=== PATIENT | female | born 1970 | race Caucasian/White ===

== ENCOUNTER 2021-09-16 16:30 | Inpatient (IN) | payer BC ==
[~2021-09-16] VITALS: Ht 157.5 cm; Wt 72.0 kg
[2021-09-16 16:00] VITALS: BP 139/84
--- NOTE | 2021-09-16 16:00 | NUR ---
admitted from [facility] er. chief complaint that started on Tuesday with abdominal pain, nausea and diarrhea. she was able to keep Pedialyte and Gatorade and broth down. pain became progressively worse and went to ER. medical history completed. ems transferred; she has a IV in left antecubital. requesting food.
[2021-09-16] MEDS ORDERED: IV NORMAL SALINE 1000ML BAG 1,000 ML IV ONE (16:45)
[2021-09-16] MEDS ORDERED: PIP/TAZO PER PHARMACY MC PRN (16:45)
--- NOTE | 2021-09-16 16:52 | PDOC1 ---
History and Physical Date of Admission Date of Admission DATE: 09/16/21 TIME: 16:47 Identification/Chief Complaint Chief Complaint abd pain Source Source: Chart review, Patient History of Present Illness History of Present Illness MS. Orellana, is a 51 year old female transfer from [facility], with acute abdominal pain, NVD for days. Her pain is central/periumbilical and radiates to the low abdomen, especially the right side. She denies exacerbating and remitting factors. She has not ambulated much at home secondary to her pain. poor po intake for days, has vomited, is nauseated, able to keep some clears down. low T , 100, has had watery stools CT abd showed perf appy, Zosyn given Past Medical History Past Medical History Diabetes, Hypertension Past Surgical History Past Surgical History Past Surgical History: Cholecystectomy, Other Additional Past Surgical Histo: bariatric sleeve Family History Family History Family History: Diabetes, Hypertension Social History Smoke: # pack years (social use, ) ALCOHOL: rare Drugs: None Current Medications Current Medications Current Medications Piperacillin Sod/ Tazobactam Sod (Zosyn Per Pharmacy) 1 each PRN DAILY PRN MC SEE COMMENTS; Start 09/16/21 at 16:45 Sodium Chloride 1,000 ml @ 1,000 mls/hr 1X ONCE IV ; Start 09/16/21 at 16:45; Stop 09/16/21 at 17:44; Status UNV Morphine Sulfate (Morphine Sulfate) 4 mg PRN Q2HR PRN IVP PAIN; Start 09/16/21 at 16:45; Status UNV Allergies Allergies: Coded Allergies: No Known Drug Allergies (Unverified , 09/16/21) ROS Review of System acute abd pain, distress General: YES: Chills Physical Exam General: Alert, moderate distress HEENT: Atraumatic, Mucous membr. moist/pink Heart: no murmurs Abdomen: Other (tender guard) Rectal Exam: not examined Extremities: No edema Skin: No rashes Neuro: Normal speech, Sensation intact VTE Prophylaxis Ordered VTE Prophylaxis Devices: No VTE Pharmacological Prophylaxi: Yes Assessment/Plan Assessment/Plan sepsis, zosyn acute abd pain acute perforated appendicitis Dm2 htn Justifications for Admission Other Justification ELENITA NAIR MD Sep 16, 2021 16:52
[2021-09-16] MEDS: INSULIN LISPRO 300 UNITS/3 ML VIAL. SQ SCH (17:00)
--- NOTE | 2021-09-16 17:30 | NUR ---
blood sugar 56. given a 1/2 amp dextrose. blood sugar went up to 110. she had no symptoms
[2021-09-16] MEDS: DEXTROSE 50% 25 GM / 50ML DISP.SYRIN. IV PRN (18:25)
[2021-09-16] MEDS: PIPERACILLIN/TAZOBACTAM 3.375 GM in IV NORMAL SALINE 50ML 50 ML IV SCH (18:27)
[2021-09-16] MEDS: MORPHINE SULFATE 2 MG/ML INJ. IVP PRN (18:28)
[2021-09-16 19:32] VITALS: BP 146/77
[2021-09-16] MEDS ORDERED: CALC250T PO (20:12)
[2021-09-16] MEDS ORDERED: LISI10TA16 PO (20:12)
[2021-09-16] MEDS ORDERED: LACT1CAP37 PO (20:12)
[2021-09-16] MEDS ORDERED: ALPR0.25 PO (20:12)
[2021-09-16] MEDS ORDERED: MULT-121 PO (20:12)
[2021-09-16] MEDS ORDERED: TRAM50TA PO (20:12)
[2021-09-16] MEDS ORDERED: CHOL5000 PO (20:12)
--- NOTE | 2021-09-16 20:47 | NUR ---
Patient agitated and restless. "I don't know why I'm even here, the surgeon hasn't even seen me." C/o that Morphine makes her stomach burn and doesn't help w/ the pain. Paged Dr. Panda for these meds per pt request- Toradol, Benadryl and Xanax.
[2021-09-16] MEDS: diphenhydrAMINE 50 MG/ML VIAL IVP PRN (21:52)
[2021-09-16] MEDS: ALPRAZolam 0.25 MG TABLET PO PRN (21:53)
[2021-09-16] MEDS: KETOROLAC 30 MG/ML VIAL. IV PRN (21:53)
[2021-09-16 22:33] VITALS: BP 133/77
[2021-09-17] MEDS: PIPERACILLIN/TAZOBACTAM 3.375 GM in IV NORMAL SALINE 50ML 50 ML IV SCH ×5 (06:00→23:55)
[2021-09-17 07:15] VITALS: BP 134/70
[2021-09-17] MEDS: INSULIN LISPRO 300 UNITS/3 ML VIAL. SQ SCH ×3 (07:37→17:00)
--- NOTE | 2021-09-17 07:47 | NUR ---
[employer] system down since 99, paper charting in chart.
[2021-09-17] MEDS: DEXTROSE 50% 25 GM / 50ML DISP.SYRIN. IV PRN (07:56)
--- NOTE | 2021-09-17 10:06 | NUR ---
Patient is very agitated at this time and is yelling/crying/cussing in her room. She states she does not know why she is not in surgery right now and is puzzled on why the surgeon has not been in to see her. This nurse tried calming the patient down but she is threatening to leave AMA since the surgeon has not seen her. Called and spoke to the office who stated the consult went to Dr Laura yesterday. He is in surgery right now at [facility] till at least noon per their trade union secretary and will come see the patient later today. Patient was notified and is still not happy with the fact the surgeon has not seen her yesterday or today. Dr Hammond is on the floor and notified of patients behaviors. Will also try calling Dr Cagle office around noon to page him so I can speak with him over the phone. Will continue to monitor. Dr Hammond notified of patients low blood sugar this morning as well. New order for D5 1/2 NS at 100ml since patient is NPO at this time to help stabilize her blood sugars. Will monitor.
--- NOTE | 2021-09-17 10:12 | PDOC ---
[employer] PROGRESS NOTE Date of Service DOS: DATE: 09/17/21 TIME: 10:10 Chief Complaint Chief Complaint sepsis, zosyn acute abd pain acute perforated appendicitis Dm2 htn History of Present Illness History of Present Illness tearful and agitated today, upset with waiting and that we should know what she has been through this week. Is loud with me in her complaints, but does not stop texting as I tried to trouble shoot or offer things to help,. Blood sugar 70 this AM, will start D5 half, I offered meds to help calm her and she did not respond Vitals/I&O Vitals/I&O: Vital Signs Date Time Temp Pulse Resp B/P (MAP) Pulse Ox O2 Delivery O2 Flow Rate FiO2 09/17/21 07:50 Room Air 09/17/21 07:15 97.8 71 20 134/70 (91) 96 97.8 I & O 09/16/21 09/16/21 09/17/21 15:00 23:00 07:00 Intake Total 0 ml 0 ml Balance 0 ml 0 ml Physical Exam General: Alert, moderate distress, Other (agiated, ) Abdomen: Other (tender guard) Extremities: No edema Skin: No rashes Labs Labs: Laboratory Tests Test 09/16/21 18:17 09/16/21 18:36 09/16/21 20:17 09/17/21 07:12 Glucose (Fingerstick) 56 mg/dL (70-99) 110 mg/dL (70-99) 76 mg/dL (70-99) 70 mg/dL (70-99) Test 09/17/21 08:10 Glucose (Fingerstick) 142 mg/dL (70-99) Comment Review of Relevant I have reviewed the following items dorian (where applicable) has been applied. Medications: Current Medications Medications (Trade) Dose Ordered Sig/Chris Route PRN Reason Start Time Stop Time Status Last Admin Dose Admin Sodium Chloride 1,000 ml @ 1,000 mls/hr 1X ONCE IV 09/16/21 16:45 09/16/21 17:44 DC 09/16/21 18:22 Morphine Sulfate (Morphine Sulfate) 4 mg PRN Q2HR PRN IVP PAIN 09/16/21 16:45 09/16/21 18:28 Piperacillin Sod/ Tazobactam Sod 3.375 gm/Sodium Chloride 50 ml @ 100 mls/hr Q6HRS IV 09/16/21 18:00 09/17/21 06:00 Dextrose (Dextrose 50%-Water Syringe) 12.5 gm PRN Q15MIN PRN IV SEE COMMENTS 09/16/21 17:00 09/17/21 07:56 Ketorolac Tromethamine (Toradol 30mg Vial) 30 mg PRN Q6HRS PRN IV MODERATE PAIN 4-6 09/16/21 21:45 09/21/21 21:44 09/16/21 21:53 Diphenhydramine HCl (Benadryl) 50 mg PRN Q6HRS PRN IVP MILD PAIN 1-3 09/16/21 21:45 09/16/21 21:52 Alprazolam (Xanax) 0.25 mg PRN QHS PRN PO ANXIETY 09/16/21 21:45 09/16/21 21:53 Justifications for Admission Other Justification ELENITA NAIR MD Sep 17, 2021 10:12
--- NOTE | 2021-09-17 10:23 | NUR ---
SW following. Discussed with RN, pt from home, room air, NPO. Surgery consulted. Pt very unhappy that surgeon has not been by to see her and that he is in surgery at [facility] until noon today. Pt threatening to leave AMA. RN advised no SW needs at this time. SW will continue to follow.
[2021-09-17 10:59] VITALS: BP 185/84
[2021-09-17] MEDS: IV DEXTROSE 5 %-0.45 % NACL 1,000 ML IV SCH ×2 (11:13→20:41)
[2021-09-17] MEDS: KETOROLAC 30 MG/ML VIAL. IV PRN ×3 (11:16→23:16)
[2021-09-17] MEDS: diphenhydrAMINE 50 MG/ML VIAL IVP PRN ×3 (11:20→23:15)
[2021-09-17 14:43] VITALS: BP 149/86
[2021-09-17] MEDS: MORPHINE SULFATE 2 MG/ML INJ. IVP PRN ×2 (16:07→22:29)
[2021-09-17 19:00] VITALS: BP 120/71
--- NOTE | 2021-09-17 20:06 | PDOC2 ---
CONSULT Date of Consult Date of Consult DATE: 09/17/21 TIME: 19:57 Reason for Consult Reason for Consult: perforated appendicitis Referring Physician Referring Physician: Dr. Hammond Identification/Chief Complaint Chief Complaint RLQ abd pain, nausea Source Source: Chart review, Patient History of Present Illness Reason for Visit: 51 yo F with c/o abd pain beginning on 09/12. Developed increasing abd pain and nausea and prompting visit to ER at [facility] last night. Does seem to have some reduction in nausea and pain. History of gastric sleeve 2019 with 60 lbs weight loss. Past Medical History Cardiovascular: HTN Endocrine: Diabetes Past Surgical History Past Surgical History: Cholecystectomy, Other (gastric sleeve) Family History Family History: Diabetes, Hypertension Social History # pack years (social use, ) ALCOHOL: social (does reports 6-12 units of Etoh on weekends. Smoke with drinking) Drugs: None Current Medications Current Medications Current Medications Piperacillin Sod/ Tazobactam Sod (Zosyn Per Pharmacy) 1 each PRN DAILY PRN MC SEE COMMENTS; Start 09/16/21 at 16:45 Sodium Chloride 1,000 ml @ 1,000 mls/hr 1X ONCE IV Last administered on 09/16/21at 18:22; Start 09/16/21 at 16:45; Stop 09/16/21 at 17:44; Status DC Morphine Sulfate (Morphine Sulfate) 4 mg PRN Q2HR PRN IVP SEVERE PAIN Last a dministered on 09/17/21at 16:07; Start 09/16/21 at 16:45 Piperacillin Sod/ Tazobactam Sod 3.375 gm/Sodium Chloride 50 ml @ 100 mls/hr Q6HRS IV Last administered on 09/17/21at 17:03; Start 09/16/21 at 18:00 Insulin Human Lispro (HumaLOG) 0-7 UNITS TIDWMEALS SQ ; Start 09/16/21 at 17:00 Dextrose (Dextrose 50%-Water Syringe) 12.5 gm PRN Q15MIN PRN IV SEE COMMENTS Last administered on 09/17/21at 07:56; Start 09/16/21 at 17:00 Ketorolac Tromethamine (Toradol 30mg Vial) 30 mg PRN Q6HRS PRN IV MODERATE PAIN 4-6 Last administered on 09/17/21at 17:00; Start 09/16/21 at 21:45; Stop 09/21/21 at 21:44 Diphenhydramine HCl (Benadryl) 50 mg PRN Q6HRS PRN IVP MILD PAIN 1-3 Last administered on 09/17/21at 17:00; Start 09/16/21 at 21:45 Alprazolam (Xanax) 0.25 mg PRN QHS PRN PO ANXIETY Last administered on 09/16/21at 21:53; Start 09/16/21 at 21:45 Dextrose/Sodium Chloride 1,000 ml @ 100 mls/hr Q10H IV Last administered on 09/17/21at 11:13; Start 09/17/21 at 10:15 Active Scripts Active Reported Tramadol Hcl 50 Mg Tablet 50 Mg PO Q4HRS PRN Xanax (Alprazolam) 0.25 Mg Tablet 1 Tab PO HS PRN Vitamin D3 (Vitamin D) 125 Mcg Capsule 125 Mcg PO DAILY 5,000 UNITS = 125 MCG Probiotic (Lactobacillus Combo No.10) 1 Each Capsule 1 Tab PO DAILY 30 Days Calcium Citrate 250 Mg Tablet 1 Tab PO DAILY 30 Days Multiple Vitamins (Multivitamin) 1 Each Tablet 1 Tab PO DAILY 30 Days Lisinopril 10 Mg Tablet 1 Tab PO DAILY Allergies Allergies: Coded Allergies: No Known Drug Allergies (Unverified , 09/16/21) ROS Gastrointestinal: Yes Nausea, Yes Abdominal Pain Physical Exam General: Alert, Oriented X3, Cooperative, No acute distress HEENT: Atraumatic Abdomen: Soft, Other (TTP RLQ, no peritoneal signs) Extremities: No clubbing, No cyanosis Skin: No rashes, No breakdown Neuro: Normal speech, Sensation intact Psych/Mental Status: Mental status NL, Mood NL Vitals VITALS Vital Signs Date Time Temp Pulse Resp B/P (MAP) Pulse Ox O2 Delivery O2 Flow Rate FiO2 09/17/21 16:30 96 Room Air 09/17/21 14:43 98.4 76 20 149/86 (107) 98.4 Labs Labs Laboratory Tests Test 09/16/21 18:17 09/16/21 18:36 09/16/21 20:17 09/17/21 07:12 Glucose (Fingerstick) 56 mg/dL (70-99) 110 mg/dL (70-99) 76 mg/dL (70-99) 70 mg/dL (70-99) Test 09/17/21 08:10 09/17/21 11:21 09/17/21 16:45 Glucose (Fingerstick) 142 mg/dL (70-99) 70 mg/dL (70-99) 193 mg/dL (70-99) Laboratory Tests Test 09/16/21 20:17 09/17/21 07:12 09/17/21 08:10 09/17/21 11:21 Glucose (Fingerstick) 76 mg/dL (70-99) 70 mg/dL (70-99) 142 mg/dL (70-99) 70 mg/dL (70-99) Test 09/17/21 16:45 Glucose (Fingerstick) 193 mg/dL (70-99) Images Images Appendicitis with associated small amount of free air and fluid c/w perforation Assessment/Plan Assessment/Plan Perforated appendicitis pt appears reasonably stable to improved on abx and pain meds. Will strart clears. If able to ADAT to regular diet will work towards d/c home on PO abx. Will plan elective appendectomy in 6 weeks. Thanks for consult! XAVIER HANNON MD Sep 17, 2021 20:06
[2021-09-17 23:00] VITALS: BP 162/92
[2021-09-17] MEDS: ALPRAZolam 0.25 MG TABLET PO PRN (23:16)
[2021-09-18 03:00] VITALS: BP 123/63
[2021-09-18] MEDS: KETOROLAC 30 MG/ML VIAL. IV PRN ×2 (05:21→11:21)
[2021-09-18] MEDS: diphenhydrAMINE 50 MG/ML VIAL IVP PRN ×2 (05:21→11:20)
[2021-09-18] MEDS: IV DEXTROSE 5 %-0.45 % NACL 1,000 ML IV SCH (05:27)
[2021-09-18] MEDS: PIPERACILLIN/TAZOBACTAM 3.375 GM in IV NORMAL SALINE 50ML 50 ML IV SCH ×2 (05:27→11:20)
[2021-09-18 06:31] LABS: BASO % 0 % (0-3); EOS # 0.1 x10^3/uL (0.0-0.7); EOS % 1 % (0-3); HEMOGLOBIN 10.4 g/dL (12.0-15.5); LYMPH # 1.2 x10^3/uL (1.0-4.8); LYMPH % 19 % (24-48); MEAN CORPUSCULAR HEMOGLOBIN 30 pg (25-35); MEAN CORPUSCULAR HGB CONC 34 g/dL (31-37); MEAN CORPUSCULAR VOLUME 88 fL (79-100); MONO # 1.1 x10^3/uL (0.0-1.1); MONO % 18 % (0-9); NEUT % 62 % (31-73); PLATELET COUNT 240 x10^3/uL (140-400); RED BLOOD COUNT 3.52 x10^6/uL (3.50-5.40); WHITE BLOOD COUNT 6.5 x10^3/uL (4.0-11.0)
[2021-09-18 06:45] LABS: ALBUMIN 2.1 g/dL (3.4-5.0); ALBUMIN/GLOBULIN RATIO 0.6 (1.0-1.7); CALCIUM 8.2 mg/dL (8.5-10.1); CREATININE 0.8 mg/dL (0.6-1.0); POTASSIUM 3.2 mmol/L (3.5-5.1); TOTAL BILIRUBIN 0.4 mg/dL (0.2-1.0); TOTAL PROTEIN 5.6 g/dL (6.4-8.2)
[2021-09-18 07:00] VITALS: BP 122/69
[2021-09-18] MEDS: INSULIN LISPRO 300 UNITS/3 ML VIAL. SQ SCH ×2 (08:00→12:00)
[2021-09-18] MEDS ORDERED: TRAM50TA PO (08:56)
[2021-09-18] MEDS ORDERED: AMOX1TAB61 PO (08:56)
[2021-09-18] MEDS ORDERED: POLYETHYLENE GLYCOL 3350 17 GM PACKET. PO ONE (09:45)
[2021-09-18] MEDS ORDERED: DOCUSATE SODIUM 100 MG CAPSULE. PO SCH (09:45)
--- NOTE | 2021-09-18 09:48 | PDOC3 ---
Discharge Summary Visit Information Date of Admission: Sep 16, 2021 Date of Discharge: Sep 18, 2021 Final Diagnosis sepsis, acute abd pain acute perforated appendicitis Dm2 htn prior gastric bypass surg Brief Hospital Course Allergies Allergies Coded Allergies Type Severity Reaction Last Updated Verified No Known Drug Allergies 09/16/21 No Vital Signs Vital Signs Date Time Temp Pulse Resp B/P (MAP) Pulse Ox O2 Delivery O2 Flow Rate FiO2 09/18/21 08:15 Room Air 09/18/21 07:00 97.9 65 20 122/69 (86) 94 97.9 Lab Results Laboratory Tests Test 09/16/21 18:17 09/16/21 18:36 09/16/21 20:17 09/17/21 07:12 Glucose (Fingerstick) 56 mg/dL (70-99) 110 mg/dL (70-99) 76 mg/dL (70-99) 70 mg/dL (70-99) Test 09/17/21 08:10 09/17/21 11:21 09/17/21 16:45 09/17/21 20:52 Glucose (Fingerstick) 142 mg/dL (70-99) 70 mg/dL (70-99) 193 mg/dL (70-99) 164 mg/dL (70-99) Test 09/18/21 06:20 09/18/21 07:56 White Blood Count 6.5 x10^3/uL (4.0-11.0) Red Blood Count 3.52 x10^6/uL (3.50-5.40) Hemoglobin 10.4 g/dL (12.0-15.5) Hematocrit 31.0 % (36.0-47.0) Mean Corpuscular Volume 88 fL (79-100) Mean Corpuscular Hemoglobin 30 pg (25-35) Mean Corpuscular Hemoglobin Concent 34 g/dL (31-37) Red Cell Distribution Width 17.0 % (11.5-14.5) Platelet Count 240 x10^3/uL (140-400) Neutrophils (%) (Auto) 62 % (31-73) Lymphocytes (%) (Auto) 19 % (24-48) Monocytes (%) (Auto) 18 % (0-9) Eosinophils (%) (Auto) 1 % (0-3) Basophils (%) (Auto) 0 % (0-3) Neutrophils # (Auto) 4.0 x10^3/uL (1.8-7.7) Lymphocytes # (Auto) 1.2 x10^3/uL (1.0-4.8) Monocytes # (Auto) 1.1 x10^3/uL (0.0-1.1) Eosinophils # (Auto) 0.1 x10^3/uL (0.0-0.7) Basophils # (Auto) 0.0 x10^3/uL (0.0-0.2) Sodium Level 137 mmol/L (136-145) Potassium Level 3.2 mmol/L (3.5-5.1) Chloride Level 101 mmol/L (98-107) Carbon Dioxide Level 30 mmol/L (21-32) Anion Gap 6 (6-14) Blood Urea Nitrogen 6 mg/dL (7-20) Creatinine 0.8 mg/dL (0.6-1.0) Estimated GFR (Cockcroft-Gault) 75.0 BUN/Creatinine Ratio 8 (6-20) Glucose Level 134 mg/dL (70-99) Calcium Level 8.2 mg/dL (8.5-10.1) Total Bilirubin 0.4 mg/dL (0.2-1.0) Aspartate Amino Transf (AST/SGOT) 20 U/L (15-37) Alanine Aminotransferase (ALT/SGPT) 36 U/L (14-59) Alkaline Phosphatase 213 U/L (46-116) Total Protein 5.6 g/dL (6.4-8.2) Albumin 2.1 g/dL (3.4-5.0) Albumin/Globulin Ratio 0.6 (1.0-1.7) Glucose (Fingerstick) 155 mg/dL (70-99) Laboratory Tests Test 09/17/21 11:21 09/17/21 16:45 09/17/21 20:52 09/18/21 06:20 Glucose (Fingerstick) 70 mg/dL (70-99) 193 mg/dL (70-99) 164 mg/dL (70-99) White Blood Count 6.5 x10^3/uL (4.0-11.0) Red Blood Count 3.52 x10^6/uL (3.50-5.40) Hemoglobin 10.4 g/dL (12.0-15.5) Hematocrit 31.0 % (36.0-47.0) Mean Corpuscular Volume 88 fL (79-100) Mean Corpuscular Hemoglobin 30 pg (25-35) Mean Corpuscular Hemoglobin Concent 34 g/dL (31-37) Red Cell Distribution Width 17.0 % (11.5-14.5) Platelet Count 240 x10^3/uL (140-400) Neutrophils (%) (Auto) 62 % (31-73) Lymphocytes (%) (Auto) 19 % (24-48) Monocytes (%) (Auto) 18 % (0-9) Eosinophils (%) (Auto) 1 % (0-3) Basophils (%) (Auto) 0 % (0-3) Neutrophils # (Auto) 4.0 x10^3/uL (1.8-7.7) Lymphocytes # (Auto) 1.2 x10^3/uL (1.0-4.8) Monocytes # (Auto) 1.1 x10^3/uL (0.0-1.1) Eosinophils # (Auto) 0.1 x10^3/uL (0.0-0.7) Basophils # (Auto) 0.0 x10^3/uL (0.0-0.2) Sodium Level 137 mmol/L (136-145) Potassium Level 3.2 mmol/L (3.5-5.1) Chloride Level 101 mmol/L (98-107) Carbon Dioxide Level 30 mmol/L (21-32) Anion Gap 6 (6-14) Blood Urea Nitrogen 6 mg/dL (7-20) Creatinine 0.8 mg/dL (0.6-1.0) Estimated GFR (Cockcroft-Gault) 75.0 BUN/Creatinine Ratio 8 (6-20) Glucose Level 134 mg/dL (70-99) Calcium Level 8.2 mg/dL (8.5-10.1) Total Bilirubin 0.4 mg/dL (0.2-1.0) Aspartate Amino Transf (AST/SGOT) 20 U/L (15-37) Alanine Aminotransferase (ALT/SGPT) 36 U/L (14-59) Alkaline Phosphatase 213 U/L (46-116) Total Protein 5.6 g/dL (6.4-8.2) Albumin 2.1 g/dL (3.4-5.0) Albumin/Globulin Ratio 0.6 (1.0-1.7) Test 09/18/21 07:56 Glucose (Fingerstick) 155 mg/dL (70-99) Brief Hospital Course Ms. Orellana is a 51 old c/o abd pain beginning on 09/12. Developed increasing abd pain and nausea and prompting visit to ER at [facility] last night, transfer here when CT showed Perf. after IV abx and pain meds, much better nausea and pain. History of gastric sleeve 2019 with 60 lbs weight loss. > 48 hours IV zosyn, better, able to cruz PO, will do 10 days augmentin Discharge Information Condition at Discharge: Improved Follow Up: Weeks Disposition/Orders: D/C to Home Scheduled Calcium Citrate (Calcium Citrate) 250 Mg Tablet, 1 TAB PO DAILY for supplement for 30 Days, #30 Ref 0 (Reported) Entered as Reported by: CHANEL BECKER on 09/16/212011 Last Taken: Unknown Dose on 09/16/21 Last Action: New Order on 09/16/212011 by CHANEL BECKER Cholecalciferol (Vitamin D3) (Vitamin D3 ) 125 Mcg Capsule, 125 MCG PO DAILY for supplement, (Reported) 5,000 UNITS = 125 MCG Entered as Reported by: CHANEL BECKER on 09/16/212011 Last Taken: Unknown Dose on 09/16/21 Last Action: New Order on 09/16/212011 by CHANEL BECKER Lactobacillus Combo No.10 (Probiotic) 1 Each Capsule, 1 TAB PO DAILY for supplement for 30 Days, #30 Ref 0 (Reported) Entered as Reported by: CHANEL BECKER on 09/16/212011 Last Taken: Unknown Dose on 09/16/21 Last Action: New Order on 09/16/212011 by CHANEL BECKER Lisinopril (Lisinopril) 10 Mg Tablet, 1 TAB PO DAILY for htn, #30 Ref 5 (Reported) Entered as Reported by: CHANEL BECKER on 09/16/212011 Last Taken: Unknown Dose on 09/16/21 Last Action: New Order on 09/16/212011 by CHANEL BECKER Multivitamin (Multiple Vitamins) 1 Each Tablet, 1 TAB PO DAILY for supplement for 30 Days, #30 Ref 0 (Reported) Entered as Reported by: CHANEL BECKER on 09/16/212011 Last Taken: Unknown Dose on 09/16/21 Last Action: New Order on 09/16/212011 by CHANEL BECKER Scheduled PRN Alprazolam (Xanax) 0.25 Mg Tablet, 1 TAB PO HS PRN for ANXIETY, #30 (Reported) Entered as Reported by: CHANEL BECKER on 09/16/212011 Last Action: Continued on 09/16/212144 by MARYJO TAVERA Tramadol Hcl (Tramadol Hcl) 50 Mg Tablet, 50 MG PO Q4HRS PRN for PAIN, #25 Prescribed by: ELENITA NAIR on 09/18/21 0857 Patient Instructions Patient Instructions f/u Dr. Nguyen in 6 weeks for surg primary care next week face to face today > 34 minutes Justicifation of Admission Dx: Justifications for Admission: Justification of Admission Dx: Yes (sepssi) ELENITA NAIR MD Sep 18, 2021 09:48
--- NOTE | 2021-09-18 09:50 | NUR ---
SW following. Discussed with RN, discharge order for home with self care. RN advised no SW needs at this time.
--- NOTE | 2021-09-18 09:55 | PDOC ---
SURGICAL PROGRESS NOTE DATE: 09/18/21 TIME: 09:54 Subjective Pt feels better, mild burning RLQ, cruz clears, nausea improved Vital Signs Vital Signs Date Time Temp Pulse Resp B/P (MAP) Pulse Ox O2 Delivery O2 Flow Rate FiO2 09/18/21 08:15 Room Air 09/18/21 07:00 97.9 65 20 122/69 (86) 94 97.9 General: Alert, Oriented X3, Cooperative, No acute distress Abdomen: Soft, Other (mild TTP RLQ) Labs Laboratory Tests Test 09/16/21 18:17 09/16/21 18:36 09/16/21 20:17 09/17/21 07:12 Glucose (Fingerstick) 56 mg/dL (70-99) 110 mg/dL (70-99) 76 mg/dL (70-99) 70 mg/dL (70-99) Test 09/17/21 08:10 09/17/21 11:21 09/17/21 16:45 09/17/21 20:52 Glucose (Fingerstick) 142 mg/dL (70-99) 70 mg/dL (70-99) 193 mg/dL (70-99) 164 mg/dL (70-99) Test 09/18/21 06:20 09/18/21 07:56 White Blood Count 6.5 x10^3/uL (4.0-11.0) Red Blood Count 3.52 x10^6/uL (3.50-5.40) Hemoglobin 10.4 g/dL (12.0-15.5) Hematocrit 31.0 % (36.0-47.0) Mean Corpuscular Volume 88 fL (79-100) Mean Corpuscular Hemoglobin 30 pg (25-35) Mean Corpuscular Hemoglobin Concent 34 g/dL (31-37) Red Cell Distribution Width 17.0 % (11.5-14.5) Platelet Count 240 x10^3/uL (140-400) Neutrophils (%) (Auto) 62 % (31-73) Lymphocytes (%) (Auto) 19 % (24-48) Monocytes (%) (Auto) 18 % (0-9) Eosinophils (%) (Auto) 1 % (0-3) Basophils (%) (Auto) 0 % (0-3) Neutrophils # (Auto) 4.0 x10^3/uL (1.8-7.7) Lymphocytes # (Auto) 1.2 x10^3/uL (1.0-4.8) Monocytes # (Auto) 1.1 x10^3/uL (0.0-1.1) Eosinophils # (Auto) 0.1 x10^3/uL (0.0-0.7) Basophils # (Auto) 0.0 x10^3/uL (0.0-0.2) Sodium Level 137 mmol/L (136-145) Potassium Level 3.2 mmol/L (3.5-5.1) Chloride Level 101 mmol/L (98-107) Carbon Dioxide Level 30 mmol/L (21-32) Anion Gap 6 (6-14) Blood Urea Nitrogen 6 mg/dL (7-20) Creatinine 0.8 mg/dL (0.6-1.0) Estimated GFR (Cockcroft-Gault) 75.0 BUN/Creatinine Ratio 8 (6-20) Glucose Level 134 mg/dL (70-99) Calcium Level 8.2 mg/dL (8.5-10.1) Total Bilirubin 0.4 mg/dL (0.2-1.0) Aspartate Amino Transf (AST/SGOT) 20 U/L (15-37) Alanine Aminotransferase (ALT/SGPT) 36 U/L (14-59) Alkaline Phosphatase 213 U/L (46-116) Total Protein 5.6 g/dL (6.4-8.2) Albumin 2.1 g/dL (3.4-5.0) Albumin/Globulin Ratio 0.6 (1.0-1.7) Glucose (Fingerstick) 155 mg/dL (70-99) Laboratory Tests Test 09/17/21 11:21 09/17/21 16:45 09/17/21 20:52 09/18/21 06:20 Glucose (Fingerstick) 70 mg/dL (70-99) 193 mg/dL (70-99) 164 mg/dL (70-99) White Blood Count 6.5 x10^3/uL (4.0-11.0) Red Blood Count 3.52 x10^6/uL (3.50-5.40) Hemoglobin 10.4 g/dL (12.0-15.5) Hematocrit 31.0 % (36.0-47.0) Mean Corpuscular Volume 88 fL (79-100) Mean Corpuscular Hemoglobin 30 pg (25-35) Mean Corpuscular Hemoglobin Concent 34 g/dL (31-37) Red Cell Distribution Width 17.0 % (11.5-14.5) Platelet Count 240 x10^3/uL (140-400) Neutrophils (%) (Auto) 62 % (31-73) Lymphocytes (%) (Auto) 19 % (24-48) Monocytes (%) (Auto) 18 % (0-9) Eosinophils (%) (Auto) 1 % (0-3) Basophils (%) (Auto) 0 % (0-3) Neutrophils # (Auto) 4.0 x10^3/uL (1.8-7.7) Lymphocytes # (Auto) 1.2 x10^3/uL (1.0-4.8) Monocytes # (Auto) 1.1 x10^3/uL (0.0-1.1) Eosinophils # (Auto) 0.1 x10^3/uL (0.0-0.7) Basophils # (Auto) 0.0 x10^3/uL (0.0-0.2) Sodium Level 137 mmol/L (136-145) Potassium Level 3.2 mmol/L (3.5-5.1) Chloride Level 101 mmol/L (98-107) Carbon Dioxide Level 30 mmol/L (21-32) Anion Gap 6 (6-14) Blood Urea Nitrogen 6 mg/dL (7-20) Creatinine 0.8 mg/dL (0.6-1.0) Estimated GFR (Cockcroft-Gault) 75.0 BUN/Creatinine Ratio 8 (6-20) Glucose Level 134 mg/dL (70-99) Calcium Level 8.2 mg/dL (8.5-10.1) Total Bilirubin 0.4 mg/dL (0.2-1.0) Aspartate Amino Transf (AST/SGOT) 20 U/L (15-37) Alanine Aminotransferase (ALT/SGPT) 36 U/L (14-59) Alkaline Phosphatase 213 U/L (46-116) Total Protein 5.6 g/dL (6.4-8.2) Albumin 2.1 g/dL (3.4-5.0) Albumin/Globulin Ratio 0.6 (1.0-1.7) Test 09/18/21 07:56 Glucose (Fingerstick) 155 mg/dL (70-99) Assessment/Plan perforated appendicitis will try soft diet and work towards d/c home on PO abx. will f/u in office in two weeks with plans for elective appendectomy in 6 weeks. Justicifation of Admission Dx: Justifications for Admission: Justification of Admission Dx: Yes (sepssi) XAVIER HANNON MD Sep 18, 2021 09:55
[2021-09-18 11:00] VITALS: BP 156/77
--- NOTE | 2021-09-18 13:32 | NUR ---
Patient left with family around 1330. IV discontinued without complications. Patient refused for this nurse to make her a follow up appointment with Dr Nguyen but she does know she needs to make one in two weeks for possible surgery in 6 weeks. She also states "I plan to get another opinion on Tuesday anyways". Discharge orders completed by Dr Hammond and douglas were sent to the patients pharmacy. No concerns noted at discharge.
== END 2021-09-18 13:37 | disposition home or self-care (01) | DRG 871 ==
LOC: 4 NORTH 16:30
PROVIDERS: ADMIT Internal Medicine; ATTEND Internal Medicine
DX: A41.9 Sepsis, unspecified organism (principal); K35.32 Acute appendicitis with perforation, localized peritonitis, and gangrene, without abscess; E11.9 Type 2 diabetes mellitus without complications; I10 Essential (primary) hypertension; Z82.49 Family history of ischemic heart disease and other diseases of the circulatory system; Z83.3 Family history of diabetes mellitus; Z98.84 Bariatric surgery status
CPT/HCPCS: 36415; 80053; 82962; 85025; J1200; J1815; J1885; J2270; J2543; J7030; J7042; G0378

== ENCOUNTER → 2021-09-25 | Outpatient (CLI) | payer BC ==
[2021-09-18 11:00] VITALS: BP 156/77
[~2021-09-25] MED LIST: ALPR0.25 PO; AMOX1TAB61 PO; CALC250T PO; CHOL5000 PO; LACT1CAP37 PO; LISI10TA16 PO; MULT-121 PO; OMEP20TA63 PO; OXYC1TAB15 PO; TRAM50TA PO
[2021-09-28 14:40] LABS: ALBUMIN 2.7 g/dL (3.4-5.0); ALBUMIN/GLOBULIN RATIO 0.5 (1.0-1.7); CALCIUM 9.3 mg/dL (8.5-10.1); CREATININE 0.7 mg/dL (0.6-1.0); GFR 87.5; TOTAL PROTEIN 7.7 g/dL (6.4-8.2)
[2021-09-28 14:41] LABS: POTASSIUM 4.1 mmol/L (3.5-5.1); TOTAL BILIRUBIN 0.3 mg/dL (0.2-1.0)
[2021-09-28 16:00] LABS: WHITE BLOOD COUNT 14.8 x10^3/uL (4.0-11.0)
[2021-09-28 16:06] LABS: HEMATOCRIT 36.1 % (36.0-47.0); HEMOGLOBIN 11.7 g/dL (12.0-15.5); MEAN CORPUSCULAR HEMOGLOBIN 29 pg (25-35); MEAN CORPUSCULAR HGB CONC 32 g/dL (31-37); MEAN CORPUSCULAR VOLUME 89 fL (79-100); PLATELET COUNT 732 x10^3/uL (140-400); RED BLOOD COUNT 4.08 x10^6/uL (3.50-5.40); RED CELL DISTRIBUTION WIDTH 17.1 % (11.5-14.5)
[2021-09-28 16:07] LABS: BASO # 0.1 x10^3/uL (0.0-0.2); BASO % 0 % (0-3); EOS # 0.1 x10^3/uL (0.0-0.7); EOS % 1 % (0-3); LYMPH % 14 % (24-48); MONO # 1.2 x10^3/uL (0.0-1.1); MONO % 8 % (0-9); NEUT # 11.5 x10^3/uL (1.8-7.7); NEUT % 77 % (31-73)
== END ==
LOC: LAB 13:24
PROVIDERS: ATTEND Surgery
DX: K35.32 Acute appendicitis with perforation, localized peritonitis, and gangrene, without abscess (principal)
CPT/HCPCS: 36415; 80053; 85025

== ENCOUNTER 2021-09-28 07:14 | Inpatient (IN) | payer BC ==
[~2021-09-28] VITALS: Ht 157.5 cm; Wt 80.3 kg
[~2021-09-28 07:14] MED LIST changes: +IV RINGERS,LACTATED 1000ML 1,000 ML IV SCH; +PROCHLORPERAZINE 10 MG/2 ML VIAL. IVP PRN; +cefOXitin SODIUM IV Push 2 GM VIAL. IVP ONE; +fentaNYL PF VIAL 100 MCG/2 ML VIAL IVP PRN
[2021-09-28] MEDS ORDERED: BUPIVACAINE-EPI 0.5% 30 ML VIAL KIT. ONE (07:19)
[2021-09-28 07:53] VITALS: BP 137/78
[2021-09-28] MEDS ORDERED: PROPOFOL 10 MG/ML (20ML) VIAL. IV ONE (08:28)
[2021-09-28] MEDS ORDERED: ONDANSETRON PF 4 MG/2 ML VIAL. ONE (08:28)
[2021-09-28] MEDS ORDERED: LIDOCAINE 2% PF 5 ML VIAL. ONE (08:28)
[2021-09-28] MEDS ORDERED: DEXAMETHASONE SOD PHOS 4 MG/ML VIAL ONE (08:28)
[2021-09-28] MEDS ORDERED: KETOROLAC 30 MG/ML VIAL. ONE (08:28)
[2021-09-28] MEDS ORDERED: GLYCOPYRROLATE 1 MG/5 ML VIAL. ONE (08:29)
[2021-09-28] MEDS ORDERED: ROCURONIUM 50 MG/5 ML VIAL. ONE ×2 (08:29→10:22)
[2021-09-28] MEDS ORDERED: MIDAZOLAM HCL/PF 2 MG/2 ML VIAL. ONE (08:29)
[2021-09-28] MEDS ORDERED: NEOSTIGMINE 10 MG/10 ML VIAL. ONE (08:29)
[2021-09-28] MEDS ORDERED: fentaNYL PF VIAL 100 MCG/2 ML VIAL ONE ×3 (08:29→13:07)
--- NOTE | 2021-09-28 09:06 | PDOC ---
SURGICAL PROGRESS NOTE DATE: 09/28/21 TIME: 09:04 Subjective Pre-Op Note 51 yo F with perforated appendicitis. Pt initially treated with non operative management with plans for elective appendectomy. However, pt with persistent pain. Given this, (and elevated WBC), favor proceeding with laparoscopic versus open appendectomy. R/R/B/A d/w pt and pt's family. Risks, including, but not limited to: bleeding, infection, damage to surrounding structures, risk of anesthesia, risk of open, risk of abscess. They appear to understand, their questions are answered and they elect to proceed. Office note H&P reviewed and unchanged. Vital Signs Vital Signs Date Time Temp Pulse Resp B/P (MAP) Pulse Ox O2 Delivery O2 Flow Rate FiO2 09/28/21 07:56 99.9 100 20 137/78 95 Room Air 99.9 Justicifation of Admission Dx: Justifications for Admission: Justification of Admission Dx: Yes XAVIER HANNON MD Sep 28, 2021 09:06
[2021-09-28] MEDS ORDERED: ESMOLOL 100 MG/10 ML VIAL. IVP ONE (09:48)
[2021-09-28] MEDS ORDERED: METHYLENE BLUE 0.5% 10ml AMPULE. ONE (10:45)
[2021-09-28] MEDS ORDERED: SURGICEL HEMOSTAT 4X8 EACH. ONE ×3 (11:22→12:15)
[2021-09-28] MEDS ORDERED: SURGICEL HEMOSTAT 4X8 EACH. TP ONE ×2 (11:41→12:15)
[2021-09-28] MEDS ORDERED: diphenhydrAMINE 50 MG/ML VIAL ONE (12:26)
[2021-09-28] MEDS ORDERED: HYDROmorphone 2 MG/ML VIAL IVP PRN (12:30)
[2021-09-28] MEDS ORDERED: MORPHINE SULFATE 2 MG/ML INJ. IVP PRN (12:30)
[2021-09-28] MEDS ORDERED: fentaNYL PF VIAL 100 MCG/2 ML VIAL IVP PRN ×2 (12:30)
[2021-09-28] MEDS ORDERED: IV RINGERS,LACTATED 1000ML 1,000 ML IV SCH (12:30)
[2021-09-28] MEDS ORDERED: PROCHLORPERAZINE 10 MG/2 ML VIAL. IVP PRN (12:30)
[2021-09-28] MEDS ORDERED: cefOXitin SODIUM IV Push 1 GM VIAL. IVP ONE ×2 (12:33→12:45)
[2021-09-28] MEDS ORDERED: IV NORMAL SALINE 1000ML BAG 1,000 ML IV SCH ×2 (13:00→16:45)
[2021-09-28] MEDS ORDERED: MORPHINE SULFATE 30 ML IV PRN (13:00)
[2021-09-28] MEDS ORDERED: NALOXONE 0.4 MG/ML VIAL. IV PRN ×2 (13:00→16:45)
[2021-09-28] MEDS ORDERED: 0.9 % SODIUM CHLORIDE 10 ML DISP.SYRIN. IV PRN (13:00)
[2021-09-28] MEDS ORDERED: ONDANSETRON PF 4 MG/2 ML VIAL. IVP PRN (13:00)
--- NOTE | 2021-09-28 13:05 | PDOC4 ---
OPERATIVE NOTE Date: Date: Sep 28, 2021 Pre-Op Diagnosis: Perforated appendicitis Post-Op Diagnosis: same Procedure Performed: laparoscopically assisted right colectomy Surgeon: Yrn Hannon Anesthesia Type: GETA plus local Blood Loss: 200 Specimans Obtained: right colon Findings: Obliterated appendix, ruptured into right colon mesocolon, normal ureter on right, normal liver and stomach (hard to visualize sleeve), normal gynecological structures. Complications: none Operative Note: After obtaining informed consent, patient was taken to OR, induced under GETA and prepped in the usual fashion. 5 mm ports placed LLQ and suprapubic, 12 port placed umbilical, all under laparoscopic guidance. Abdominal cavity was explored and normal except as noted above. Extensive locked in cecum, with hard induration, palpable externally. Right white line of toldt divided and right colon mobilized. Exploration medially demonstrated abscess. [place] of taenia followed down and beginning of appendix identified, but obliterated into mesocolon. Right colon mobilized. Further dissection of appendix appeared to devascularize cecum, secondary to extensive contained abscess. Given this, a right colon is indicated. Transverse incision was made in right lower quadrant. Terminal ileum and right colon mobilized and eviscerated. JORY used to divide small bowel proximal to area of concern. JORY used to divide right colon near hepatic flexure, distal to area of concern. Ligasure used to debride mesocolon of most of indurated tissue. Specimen sent to pathology. Right retroperitoneum evaluated. Non viable tissue debrided. Right ureter identified by jamil sign and traced without injury. Methylene blue given and identified in ware, but not intraabdominal. Duodenum appeared to be above area of concern. Side to side stapled anastomosis created using JORY 75. End sealed with TA 60. Staple line oversewn with 3 0 vicryl. Mesenteric defect not repaired, given large size. Anastomosis noted to be patent, under no tension, viable and without leakage. Copious irrigation. No evidence of bleeding or other pathology. Peritoneum repaired with 0 vicryl. Anterior fascia repaired with 0 looped PDS. Skin repaired with 3 0 vicryl and 4 0 monocryl. Aldo left in wound and secured with 3 0 nylon. Dressing placed. Patient tolerated procedure well and sent to PACU in stable condition. All counts correct. Wound class is 4. XAVIER HANNON MD Sep 28, 2021 13:05
--- NOTE | 2021-09-28 13:18 | RAD ---
XR ABDOMEN 1V History: Reason: POST OP KUB IN OR, POST APPENDECTOMY. / Spl. Instructions: / History: Technique: Supine view the abdomen. Comparison: CT September 16, 2021 Findings: Postoperative pneumoperitoneum. Left lower abdominal subcutaneous gas. Postoperative changes right lo wer quadrant. Surgical clips right upper quadrant. Surgical clip reticular the left sacrum is unchang ed compared to prior CT. Increased mildly distended loops of small bowel within the left abdomen. Impression: 1. Postoperative pneumoperitoneum. No retained foreign body identified. 2. Increased small bowel distention, may indicate ileus. Electronically signed by: Reji Mujica DO (09/28/2021 1:16 PM) [id number]
[2021-09-28] MEDS ORDERED: HYDROmorphone 2 MG/ML VIAL ONE (13:26)
[2021-09-28] MEDS: HYDROmorphone 2 MG/ML VIAL IVP PRN ×4 (13:30→14:09)
[2021-09-28] MEDS: MORPHINE SULFATE 2 MG/ML INJ. IVP PRN ×2 (14:10→14:34)
[2021-09-28] MEDS: IV RINGERS,LACTATED 1000ML 1,000 ML IV SCH (17:39)
[2021-09-28] MEDS: PIPERACILLIN/TAZOBACTAM 3.375 GM in IV NORMAL SALINE 50ML 50 ML IV SCH ×2 (17:46→23:51)
[2021-09-28 19:15] VITALS: BP 100/72
[2021-09-28 23:00] VITALS: BP_SYST 115; BP_SYST 118; BP_DIAS 78; BP_DIAS 79
[2021-09-29] MEDS: IV RINGERS,LACTATED 1000ML 1,000 ML IV SCH ×3 (00:10→20:00)
[2021-09-29] MEDS: IV NORMAL SALINE 1000ML BAG 1,000 ML IV SCH (01:15)
[2021-09-29] MEDS ORDERED: NALOXONE 0.4 MG/ML VIAL. IV PRN (01:15)
[2021-09-29] MEDS ORDERED: diphenhydrAMINE 50 MG/ML VIAL IVP ONE (01:15)
[2021-09-29] MEDS: HYDROmorphone 12mg/30ml PCA 30 ML IV PRN (01:29)
[2021-09-29 03:00] VITALS: BP 142/87
[2021-09-29] MEDS: PIPERACILLIN/TAZOBACTAM 3.375 GM in IV NORMAL SALINE 50ML 50 ML IV SCH ×3 (05:29→17:44)
[2021-09-29 07:15] VITALS: BP 152/75
[2021-09-29 07:33] LABS: CALCIUM 8.5 mg/dL (8.5-10.1); CREATININE 0.8 mg/dL (0.6-1.0); POTASSIUM 4.7 mmol/L (3.5-5.1)
[2021-09-29 07:44] LABS: BASO % 0 % (0-3); EOS % 0 % (0-3); HEMATOCRIT 23.9 % (36.0-47.0); HEMOGLOBIN 7.9 g/dL (12.0-15.5); LYMPH # 1.8 x10^3/uL (1.0-4.8); LYMPH % 10 % (24-48); MEAN CORPUSCULAR HEMOGLOBIN 29 pg (25-35); MEAN CORPUSCULAR HGB CONC 33 g/dL (31-37); MEAN CORPUSCULAR VOLUME 87 fL (79-100); MONO # 1.5 x10^3/uL (0.0-1.1); MONO % 9 % (0-9); NEUT # 14.2 x10^3/uL (1.8-7.7); NEUT % 81 % (31-73); PLATELET COUNT 752 x10^3/uL (140-400); RED BLOOD COUNT 2.73 x10^6/uL (3.50-5.40); RED CELL DISTRIBUTION WIDTH 17.1 % (11.5-14.5); WHITE BLOOD COUNT 17.6 x10^3/uL (4.0-11.0)
[2021-09-29 10:28] LABS: % LYMPHS 18 % (24-48); % MONOS 8 % (0-10); % SEGS 74 % (35-66); PLT ESTIMATE INCREASED (ADEQUATE)
[2021-09-29] MEDS: ENOXAPARIN 40 MG/0.4 ML SYRINGE. SQ SCH (10:38)
--- NOTE | 2021-09-29 10:50 | NUR ---
Pt. c/o spasms to abd. 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 Pt. states she wants something for the spasms. Will await for Dr. Nguyen's rounds.
[2021-09-29 11:02] VITALS: BP 142/72
--- NOTE | 2021-09-29 11:02 | NUR ---
SW following. Discussed with RN, pt from home alone, 2L (does not use oxygen at home), NPO, TRAY CHECKER. Pt had surgery on 09/28/21. RN advised no SW needs at this time. SW will continue to follow.
[2021-09-29] MEDS: diphenhydrAMINE 50 MG/ML VIAL IVP PRN (12:18)
--- NOTE | 2021-09-29 12:57 | PDOC ---
SURGICAL PROGRESS NOTE DATE: 09/29/21 TIME: 12:56 Subjective muscle spasms no flatus eye pain, feels like a scratch Vital Signs Vital Signs Date Time Temp Pulse Resp B/P (MAP) Pulse Ox O2 Delivery O2 Flow Rate FiO2 09/29/21 11:02 99.4 112 20 142/72 (95) 96 Nasal Cannula 2.0 99.4 I&O Intake and Output 09/29/21 07:00 Intake Total 1519 ml Output Total 650 ml Balance 869 ml Intake IV Total 1519 ml Output Urine Total 450 ml Estimated Blood Loss 200 ml General: Alert, Cooperative Abdomen: Soft, Other (dressing dry) Labs Laboratory Tests Test 09/28/21 17:03 09/29/21 06:50 09/29/21 12:37 Glucose (Fingerstick) 216 mg/dL (70-99) 147 mg/dL (70-99) White Blood Count 17.6 x10^3/uL (4.0-11.0) Red Blood Count 2.73 x10^6/uL (3.50-5.40) Hemoglobin 7.9 g/dL (12.0-15.5) Hematocrit 23.9 % (36.0-47.0) Mean Corpuscular Volume 87 fL (79-100) Mean Corpuscular Hemoglobin 29 pg (25-35) Mean Corpuscular Hemoglobin Concent 33 g/dL (31-37) Red Cell Distribution Width 17.1 % (11.5-14.5) Platelet Count 752 x10^3/uL (140-400) Neutrophils (%) (Auto) 81 % (31-73) Lymphocytes (%) (Auto) 10 % (24-48) Monocytes (%) (Auto) 9 % (0-9) Eosinophils (%) (Auto) 0 % (0-3) Basophils (%) (Auto) 0 % (0-3) Neutrophils # (Auto) 14.2 x10^3/uL (1.8-7.7) Lymphocytes # (Auto) 1.8 x10^3/uL (1.0-4.8) Monocytes # (Auto) 1.5 x10^3/uL (0.0-1.1) Eosinophils # (Auto) 0.0 x10^3/uL (0.0-0.7) Basophils # (Auto) 0.0 x10^3/uL (0.0-0.2) Segmented Neutrophils % 74 % (35-66) Lymphocytes % 18 % (24-48) Monocytes % 8 % (0-10) Platelet Estimate Increased (ADEQUATE) Sodium Level 136 mmol/L (136-145) Potassium Level 4.7 mmol/L (3.5-5.1) Chloride Level 101 mmol/L (98-107) Carbon Dioxide Level 26 mmol/L (21-32) Anion Gap 9 (6-14) Blood Urea Nitrogen 11 mg/dL (7-20) Creatinine 0.8 mg/dL (0.6-1.0) Estimated GFR (Cockcroft-Gault) 75.0 Glucose Level 170 mg/dL (70-99) Calcium Level 8.5 mg/dL (8.5-10.1) Laboratory Tests Test 09/28/21 17:03 09/29/21 06:50 09/29/21 12:37 Glucose (Fingerstick) 216 mg/dL (70-99) 147 mg/dL (70-99) White Blood Count 17.6 x10^3/uL (4.0-11.0) Red Blood Count 2.73 x10^6/uL (3.50-5.40) Hemoglobin 7.9 g/dL (12.0-15.5) Hematocrit 23.9 % (36.0-47.0) Mean Corpuscular Volume 87 fL (79-100) Mean Corpuscular Hemoglobin 29 pg (25-35) Mean Corpuscular Hemoglobin Concent 33 g/dL (31-37) Red Cell Distribution Width 17.1 % (11.5-14.5) Platelet Count 752 x10^3/uL (140-400) Neutrophils (%) (Auto) 81 % (31-73) Lymphocytes (%) (Auto) 10 % (24-48) Monocytes (%) (Auto) 9 % (0-9) Eosinophils (%) (Auto) 0 % (0-3) Basophils (%) (Auto) 0 % (0-3) Neutrophils # (Auto) 14.2 x10^3/uL (1.8-7.7) Lymphocytes # (Auto) 1.8 x10^3/uL (1.0-4.8) Monocytes # (Auto) 1.5 x10^3/uL (0.0-1.1) Eosinophils # (Auto) 0.0 x10^3/uL (0.0-0.7) Basophils # (Auto) 0.0 x10^3/uL (0.0-0.2) Segmented Neutrophils % 74 % (35-66) Lymphocytes % 18 % (24-48) Monocytes % 8 % (0-10) Platelet Estimate Increased (ADEQUATE) Sodium Level 136 mmol/L (136-145) Potassium Level 4.7 mmol/L (3.5-5.1) Chloride Level 101 mmol/L (98-107) Carbon Dioxide Level 26 mmol/L (21-32) Anion Gap 9 (6-14) Blood Urea Nitrogen 11 mg/dL (7-20) Creatinine 0.8 mg/dL (0.6-1.0) Estimated GFR (Cockcroft-Gault) 75.0 Glucose Level 170 mg/dL (70-99) Calcium Level 8.5 mg/dL (8.5-10.1) Problem List increase activity Justicifation of Admission Dx: Justifications for Admission: Justification of Admission Dx: Yes VIRY BALLARD EMERGENCY VEHICLE TECHNICIAN Sep 29, 2021 12:57
[2021-09-29] MEDS ORDERED: POLYVINYL ALCOHOL 1.4% OPHTH SOLUTION 15ML BOTTLE. OU PRN (13:45)
[2021-09-29 14:51] VITALS: BP 139/68
[2021-09-29] MEDS ORDERED: diphenhydrAMINE 50 MG/ML VIAL IVP PRN (18:00)
[2021-09-29 19:00] VITALS: BP 122/75
[2021-09-29 23:00] VITALS: BP 126/63
[2021-09-30] MEDS: PIPERACILLIN/TAZOBACTAM 3.375 GM in IV NORMAL SALINE 50ML 50 ML IV SCH ×5 (00:37→23:11)
[2021-09-30] MEDS: IV NORMAL SALINE 1000ML BAG 1,000 ML IV SCH ×2 (01:15→17:17)
[2021-09-30 03:00] VITALS: BP 119/68
[2021-09-30] MEDS: IV RINGERS,LACTATED 1000ML 1,000 ML IV SCH ×2 (06:00→16:00)
[2021-09-30 07:00] VITALS: BP 125/76
[2021-09-30] MEDS: ENOXAPARIN 40 MG/0.4 ML SYRINGE. SQ SCH (08:11)
[2021-09-30 11:00] VITALS: BP 143/77
--- NOTE | 2021-09-30 14:15 | PDOC ---
SURGICAL PROGRESS NOTE DATE: 09/30/21 TIME: 14:13 Subjective Pt with c/o eye pain and vision changes, abd pain controlled, cramps improved today, no flatus or stools Vital Signs Vital Signs Date Time Temp Pulse Resp B/P (MAP) Pulse Ox O2 Delivery O2 Flow Rate FiO2 09/30/21 11:00 98.4 143/77 (99) 95 Nasal Cannula 2.0 98.4 09/30/21 07:00 103 20 I&O Intake and Output 09/30/21 07:00 Intake Total 0 ml Output Total 1450 ml Balance -1450 ml Intake Oral 0 ml Output Urine Total 1450 ml PATIENT HAS A GIPSON: Yes (green uop) General: Alert, Oriented X3, Cooperative, No acute distress Abdomen: Soft, Other (appropriate TTP RLQ) Labs Laboratory Tests Test 09/28/21 17:03 09/29/21 06:50 09/29/21 12:37 09/29/21 20:34 Glucose (Fingerstick) 216 mg/dL (70-99) 147 mg/dL (70-99) 130 mg/dL (70-99) White Blood Count 17.6 x10^3/uL (4.0-11.0) Red Blood Count 2.73 x10^6/uL (3.50-5.40) Hemoglobin 7.9 g/dL (12.0-15.5) Hematocrit 23.9 % (36.0-47.0) Mean Corpuscular Volume 87 fL (79-100) Mean Corpuscular Hemoglobin 29 pg (25-35) Mean Corpuscular Hemoglobin Concent 33 g/dL (31-37) Red Cell Distribution Width 17.1 % (11.5-14.5) Platelet Count 752 x10^3/uL (140-400) Neutrophils (%) (Auto) 81 % (31-73) Lymphocytes (%) (Auto) 10 % (24-48) Monocytes (%) (Auto) 9 % (0-9) Eosinophils (%) (Auto) 0 % (0-3) Basophils (%) (Auto) 0 % (0-3) Neutrophils # (Auto) 14.2 x10^3/uL (1.8-7.7) Lymphocytes # (Auto) 1.8 x10^3/uL (1.0-4.8) Monocytes # (Auto) 1.5 x10^3/uL (0.0-1.1) Eosinophils # (Auto) 0.0 x10^3/uL (0.0-0.7) Basophils # (Auto) 0.0 x10^3/uL (0.0-0.2) Segmented Neutrophils % 74 % (35-66) Lymphocytes % 18 % (24-48) Monocytes % 8 % (0-10) Platelet Estimate Increased (ADEQUATE) Sodium Level 136 mmol/L (136-145) Potassium Level 4.7 mmol/L (3.5-5.1) Chloride Level 101 mmol/L (98-107) Carbon Dioxide Level 26 mmol/L (21-32) Anion Gap 9 (6-14) Blood Urea Nitrogen 11 mg/dL (7-20) Creatinine 0.8 mg/dL (0.6-1.0) Estimated GFR (Cockcroft-Gault) 75.0 Glucose Level 170 mg/dL (70-99) Calcium Level 8.5 mg/dL (8.5-10.1) Test 09/30/21 13:48 Glucose (Fingerstick) 80 mg/dL (70-99) Laboratory Tests Test 09/29/21 20:34 09/30/21 13:48 Glucose (Fingerstick) 130 mg/dL (70-99) 80 mg/dL (70-99) Problem List Assessment/Plan perforated appendicitis s/p lap right colon cont abx (culture positive for e coli) encourage OOB await bowel fxn Justicifation of Admission Dx: Justifications for Admission: Justification of Admission Dx: Yes XAVIER HANNON MD Sep 30, 2021 14:15
--- NOTE | 2021-09-30 14:38 | NUR ---
Dr. Nguyen order eye patch for patient. When explained by both nurse why and how she will get the eye patch. She states she will just take it off. the doctor don't know nothing" eye patch applied. Patient continue to say I came in here for appendectomy but i want something for my eye" and the doctor doesn't use common sense" . patient was agian educated on the use of the eye patch to prevent strain and foreign objects from getting in eye. patient states" whatever I will just take it off"
[2021-09-30] MEDS ORDERED: TOBRAMYCIN 0.3% OPHTH SOLUTION 5ML BOTTLE. OU ONE (15:30)
[2021-09-30 15:55] VITALS: BP 148/74
[2021-09-30] MEDS: HYDROmorphone 12mg/30ml PCA 30 ML IV PRN (17:21)
[2021-09-30 19:00] VITALS: BP 150/76
[2021-09-30] MEDS: diphenhydrAMINE 50 MG/ML VIAL IVP PRN (22:48)
[2021-09-30 23:07] VITALS: BP 117/70
[2021-10-01 02:47] VITALS: BP 118/63
[2021-10-01] MEDS: PIPERACILLIN/TAZOBACTAM 3.375 GM in IV NORMAL SALINE 50ML 50 ML IV SCH ×4 (05:22→23:09)
[2021-10-01] MEDS: IV RINGERS,LACTATED 1000ML 1,000 ML IV SCH ×3 (05:29→22:00)
[2021-10-01 07:15] VITALS: BP 139/76
[2021-10-01 07:30] LABS: BASO % 0 % (0-3); EOS # 0.2 x10^3/uL (0.0-0.7); EOS % 1 % (0-3); LYMPH # 2.7 x10^3/uL (1.0-4.8); LYMPH % 14 % (24-48); MEAN CORPUSCULAR HEMOGLOBIN 29 pg (25-35); MEAN CORPUSCULAR HGB CONC 33 g/dL (31-37); MEAN CORPUSCULAR VOLUME 89 fL (79-100); MONO # 1.3 x10^3/uL (0.0-1.1); MONO % 6 % (0-9); NEUT # 15.5 x10^3/uL (1.8-7.7); NEUT % 79 % (31-73); PLATELET COUNT 755 x10^3/uL (140-400); RED BLOOD COUNT 2.19 x10^6/uL (3.50-5.40); RED CELL DISTRIBUTION WIDTH 16.8 % (11.5-14.5); WHITE BLOOD COUNT 19.7 x10^3/uL (4.0-11.0)
[2021-10-01 07:40] LABS: HEMOGLOBIN 6.4 g/dL (12.0-15.5)
[2021-10-01 07:41] LABS: HEMATOCRIT 19.6 % (36.0-47.0)
[2021-10-01 07:57] LABS: ALBUMIN 1.7 g/dL (3.4-5.0); ALBUMIN/GLOBULIN RATIO 0.4 (1.0-1.7); CALCIUM 8.5 mg/dL (8.5-10.1); CREATININE 0.7 mg/dL (0.6-1.0); GFR 87.5; POTASSIUM 3.7 mmol/L (3.5-5.1); TOTAL BILIRUBIN 0.4 mg/dL (0.2-1.0)
[2021-10-01] MEDS: ENOXAPARIN 40 MG/0.4 ML SYRINGE. SQ SCH (09:00)
--- NOTE | 2021-10-01 10:10 | NUR ---
SW following. Discussed with RN, pt from home alone, 2L (because of the PEST CONTROL SERVICE REPRESENTATIVE), clear liquid diet. Pt had surgery 09/28. Pt will return home when medically stable. SW will continue to follow.
[2021-10-01 11:02] VITALS: BP 144/89
--- NOTE | 2021-10-01 11:20 | PDOC ---
VIRY BALLARD CLIENT SERVICE MANAGER 10/01/21 1120: SURGICAL PROGRESS NOTE DATE: 10/01/21 TIME: 11:18 Subjective back to bed, sore with movement belching, no flatus yet Vital Signs Vital Signs Date Time Temp Pulse Resp B/P (MAP) Pulse Ox O2 Delivery O2 Flow Rate FiO2 10/01/21 11:02 98.5 109 20 144/89 (107) 95 Room Air 98.5 10/01/21 07:15 2.0 I&O Intake and Output 10/01/21 07:00 Output Total 1850 ml Balance -1850 ml Output Urine Total 1850 ml PATIENT HAS A WARE: Yes (dc today) General: Alert, Cooperative Abdomen: Soft, Other (dressing dry) Labs Laboratory Tests Test 09/29/21 12:37 09/29/21 20:34 09/30/21 13:48 10/01/21 06:40 Glucose (Fingerstick) 147 mg/dL (70-99) 130 mg/dL (70-99) 80 mg/dL (70-99) White Blood Count 19.7 x10^3/uL (4.0-11.0) Red Blood Count 2.19 x10^6/uL (3.50-5.40) Hemoglobin 6.4 g/dL (12.0-15.5) Hematocrit 19.6 % (36.0-47.0) Mean Corpuscular Volume 89 fL (79-100) Mean Corpuscular Hemoglobin 29 pg (25-35) Mean Corpuscular Hemoglobin Concent 33 g/dL (31-37) Red Cell Distribution Width 16.8 % (11.5-14.5) Platelet Count 755 x10^3/uL (140-400) Neutrophils (%) (Auto) 79 % (31-73) Lymphocytes (%) (Auto) 14 % (24-48) Monocytes (%) (Auto) 6 % (0-9) Eosinophils (%) (Auto) 1 % (0-3) Basophils (%) (Auto) 0 % (0-3) Neutrophils # (Auto) 15.5 x10^3/uL (1.8-7.7) Lymphocytes # (Auto) 2.7 x10^3/uL (1.0-4.8) Monocytes # (Auto) 1.3 x10^3/uL (0.0-1.1) Eosinophils # (Auto) 0.2 x10^3/uL (0.0-0.7) Basophils # (Auto) 0.0 x10^3/uL (0.0-0.2) Sodium Level 138 mmol/L (136-145) Potassium Level 3.7 mmol/L (3.5-5.1) Chloride Level 100 mmol/L (98-107) Carbon Dioxide Level 29 mmol/L (21-32) Anion Gap 9 (6-14) Blood Urea Nitrogen 7 mg/dL (7-20) Creatinine 0.7 mg/dL (0.6-1.0) Estimated GFR (Cockcroft-Gault) 87.5 BUN/Creatinine Ratio 10 (6-20) Glucose Level 79 mg/dL (70-99) Calcium Level 8.5 mg/dL (8.5-10.1) Total Bilirubin 0.4 mg/dL (0.2-1.0) Aspartate Amino Transf (AST/SGOT) 57 U/L (15-37) Alanine Aminotransferase (ALT/SGPT) 44 U/L (14-59) Alkaline Phosphatase 107 U/L (46-116) Total Protein 6.0 g/dL (6.4-8.2) Albumin 1.7 g/dL (3.4-5.0) Albumin/Globulin Ratio 0.4 (1.0-1.7) Laboratory Tests Test 09/30/21 13:48 10/01/21 06:40 Glucose (Fingerstick) 80 mg/dL (70-99) White Blood Count 19.7 x10^3/uL (4.0-11.0) Red Blood Count 2.19 x10^6/uL (3.50-5.40) Hemoglobin 6.4 g/dL (12.0-15.5) Hematocrit 19.6 % (36.0-47.0) Mean Corpuscular Volume 89 fL (79-100) Mean Corpuscular Hemoglobin 29 pg (25-35) Mean Corpuscular Hemoglobin Concent 33 g/dL (31-37) Red Cell Distribution Width 16.8 % (11.5-14.5) Platelet Count 755 x10^3/uL (140-400) Neutrophils (%) (Auto) 79 % (31-73) Lymphocytes (%) (Auto) 14 % (24-48) Monocytes (%) (Auto) 6 % (0-9) Eosinophils (%) (Auto) 1 % (0-3) Basophils (%) (Auto) 0 % (0-3) Neutrophils # (Auto) 15.5 x10^3/uL (1.8-7.7) Lymphocytes # (Auto) 2.7 x10^3/uL (1.0-4.8) Monocytes # (Auto) 1.3 x10^3/uL (0.0-1.1) Eosinophils # (Auto) 0.2 x10^3/uL (0.0-0.7) Basophils # (Auto) 0.0 x10^3/uL (0.0-0.2) Sodium Level 138 mmol/L (136-145) Potassium Level 3.7 mmol/L (3.5-5.1) Chloride Level 100 mmol/L (98-107) Carbon Dioxide Level 29 mmol/L (21-32) Anion Gap 9 (6-14) Blood Urea Nitrogen 7 mg/dL (7-20) Creatinine 0.7 mg/dL (0.6-1.0) Estimated GFR (Cockcroft-Gault) 87.5 BUN/Creatinine Ratio 10 (6-20) Glucose Level 79 mg/dL (70-99) Calcium Level 8.5 mg/dL (8.5-10.1) Total Bilirubin 0.4 mg/dL (0.2-1.0) Aspartate Amino Transf (AST/SGOT) 57 U/L (15-37) Alanine Aminotransferase (ALT/SGPT) 44 U/L (14-59) Alkaline Phosphatase 107 U/L (46-116) Total Protein 6.0 g/dL (6.4-8.2) Albumin 1.7 g/dL (3.4-5.0) Albumin/Globulin Ratio 0.4 (1.0-1.7) Problem List await bowel function increase activity dc ware Justicifation of Admission Dx: Justifications for Admission: Justification of Admission Dx: Yes XAVIER HANNON MD 10/01/21 1150: SURGICAL PROGRESS NOTE Assessment/Plan suspect hgb low secondary to dilution. Cont abx and monitor VIRY BALLARD L CLIENT SERVICE MANAGER Oct 01, 2021 11:20 XAVIER HANNON MD Oct 01, 2021 11:50
[2021-10-01 15:06] VITALS: BP 125/82
--- NOTE | 2021-10-01 16:29 | NUR ---
Wound/Ostomy Care Wound Type/Assessment: Patient seen per wound care consult. See wound assessment. patient has open blister on the right posterior thigh. Wound cleansed, Assessed, and measured. Blister is reddened with good pink tissue. Treatment Recommendations/Plan: Recommendations for xeroform gauze and foam dressing. Change on Tuesday. Education provided: Patient educated regarding dressing changes and PU prevention. Offloading surface/device: N/A Recommended Referrals/Tests: N/A Discharge Recommendations for dressings: Dressing change instructions left in room. No other wounds noted. Wound care will follow up on 10/07/21. Patient assisted back to chair. call light in reach.
[2021-10-01] MEDS: TOBRAMYCIN 0.3% OPHTH SOLUTION 5ML BOTTLE. OD SCH ×2 (18:22→20:07)
[2021-10-01 19:35] VITALS: BP 140/84
[2021-10-01] MEDS: HYDROmorphone 12mg/30ml PCA 30 ML IV PRN (20:46)
[2021-10-01] MEDS: diphenhydrAMINE 50 MG/ML VIAL IVP PRN (23:17)
[2021-10-01 23:41] VITALS: BP 141/78
[2021-10-02] VITALS (17 sets, daily range): BP systolic 110–164; BP diastolic 53–96
[2021-10-02] MEDS: IV NORMAL SALINE 1000ML BAG 1,000 ML IV SCH (01:15)
[2021-10-02] MEDS: IV RINGERS,LACTATED 1000ML 1,000 ML IV SCH ×2 (04:44→18:00)
[2021-10-02] MEDS: PIPERACILLIN/TAZOBACTAM 3.375 GM in IV NORMAL SALINE 50ML 50 ML IV SCH ×4 (05:11→23:55)
[2021-10-02 05:26] LABS: BASO # 0.1 x10^3/uL (0.0-0.2); BASO % 0 % (0-3); EOS # 0.1 x10^3/uL (0.0-0.7); EOS % 0 % (0-3); LYMPH # 1.1 x10^3/uL (1.0-4.8); LYMPH % 5 % (24-48); MEAN CORPUSCULAR HEMOGLOBIN 29 pg (25-35); MEAN CORPUSCULAR HGB CONC 33 g/dL (31-37); MEAN CORPUSCULAR VOLUME 88 fL (79-100); MONO # 1.5 x10^3/uL (0.0-1.1); MONO % 7 % (0-9); NEUT # 18.7 x10^3/uL (1.8-7.7); NEUT % 87 % (31-73); PLATELET COUNT 828 x10^3/uL (140-400); RED BLOOD COUNT 2.35 x10^6/uL (3.50-5.40); RED CELL DISTRIBUTION WIDTH 17.1 % (11.5-14.5); WHITE BLOOD COUNT 21.5 x10^3/uL (4.0-11.0)
[2021-10-02] MEDS: PANTOPRAZOLE 40 MG TABLET.DR. PO SCH (05:33)
[2021-10-02 05:40] LABS: HEMOGLOBIN 6.8 g/dL (12.0-15.5)
[2021-10-02 05:41] LABS: HEMATOCRIT 20.7 % (36.0-47.0)
[2021-10-02 05:56] LABS: ALBUMIN 1.6 g/dL (3.4-5.0); ALBUMIN/GLOBULIN RATIO 0.4 (1.0-1.7); CALCIUM 8.5 mg/dL (8.5-10.1); CREATININE 0.5 mg/dL (0.6-1.0); GFR 129.1; POTASSIUM 3.8 mmol/L (3.5-5.1); TOTAL BILIRUBIN 0.4 mg/dL (0.2-1.0); TOTAL PROTEIN 5.8 g/dL (6.4-8.2)
[2021-10-02] MEDS: ENOXAPARIN 40 MG/0.4 ML SYRINGE. SQ SCH (08:00)
[2021-10-02] MEDS: TOBRAMYCIN 0.3% OPHTH SOLUTION 5ML BOTTLE. OD SCH ×3 (08:01→21:00)
[2021-10-02] MEDS ORDERED: CONTRAST GIVEN. MC PRN (09:00)
[2021-10-02] MEDS ORDERED: IOHEXOL 300 MG/ML 100ML VIAL. IV ONE (09:00)
[2021-10-02] MEDS ORDERED: IOHEXOL 240 MG/ML 50ML VIAL. PO ONE (09:00)
--- NOTE | 2021-10-02 10:28 | RAD ---
PQRS Compliance Statement: One or more of the following individualized dose reduction techniques were utilized for this examinat ion: 1. Automated exposure control 2. Adjustment of the mA and/or kV according to patient size 3. Use of iterative reconstruction technique CT abdomen/pelvis with contrast 10/02/2021 8:41 AM INDICATION: Perforated appendicitis. Elevated white blood cell count. COMPARISON: CT abdomen/pelvis 09/16/2021 TECHNIQUE: Multiple axial CT images of the abdomen and pelvis were obtained after the intravenous adm inistration of 75 mL Omnipaque 300. Coronal and sagittal reformats are provided. FINDINGS: Small right and trace left pleural effusion with adjacent consolidative changes the lower a telectasis or infiltrate. Heart size within normal limits. Small hiatal hernia. Liver, spleen,, adren al glands and pancreas are normal in appearance. Gallbladder is surgically absent. Abdominal aorta is normal in course and caliber. Small volume abdominal free fluid. There is free intraperitoneal air s uggestive of recent postoperative status. The kidneys enhance symmetrically. There is no suspicious renal mass. There is no hydronephrosis. The re is a 3 mm oxygen calculus in interpolar right kidney. Bladder. Urinary bladder is within normal li mits given degree of distention. There is expansion of the right rectus sheath compatible with a rect us sheath hematoma. This extraperitoneal hemorrhage identified extending along the right lateral niels in of the bladder measuring approximately 6.7 x 4.7 cm. Expansion of the right rectus sheath measures up to 6.1 x 5.3 x 7.4 cm. There is a drainage tube identified within the right ventral subcutaneous soft tissues. Subcutaneous emphysema along the ventral abdominal wall. Right hemicolectomy changes are identified. There is a gas containing collection along the right para colic gutter measuring 6.2 x 7.8 x 9.3 cm suggestive of a abscess. This fluid tracks into the right s ubhepatic space. There are dilated small bowel loops measuring up to 3.1 cm. There is suggestion of t ransition point in the region of the neoterminal ileum. Consideration may be given for a postoperativ e ileus versus partial small bowel obstruction. Oral contrast extends into the distal jejunum, proxim al ileum. No suspicious osseous abnormality is identified. IMPRESSION: 1. Postoperative changes are identified from right hemicolectomy. There is associated free intraperit camacho air. There is suggestion of a gas containing collection along the right paracolic gutter measur ing 6.2 x 7.8 x 9.3 cm as may be seen with abscess. 2. Expansion of the right rectus sheath with associated hematoma which extends into the right extrape ritoneal perivesicular spaces measuring 6.1 x 5.2 x 7.4 cm. Hematoma adjacent to the right lateral bl adder margin measures approximately 6.7 x 4.17. There is a drainage catheter identified within the ri ght ventral abdominal wall. 3. Small right and trace left pleural effusions with adjacent compressive atelectasis versus infiltra sheryl. 4. Small volume abdominal ascites. 5. Small bowel dilatation could represent partial small bowel obstruction with transition point in th e distal ileum versus postoperative ileus. Electronically signed by: Nighat Winslow MD (10/02/2021 10:25 AM) [facility]
--- NOTE | 2021-10-02 11:29 | PDOC ---
SURGICAL PROGRESS NOTE DATE: 10/02/21 TIME: 11:27 Subjective some flatus still very sore abdominal spasms Vital Signs Vital Signs Date Time Temp Pulse Resp B/P (MAP) Pulse Ox O2 Delivery O2 Flow Rate FiO2 10/02/21 07:40 Nasal Cannula 1.0 10/02/21 07:00 97.7 88 18 161/96 (117) 95 97.7 I&O Intake and Output 10/02/21 07:00 Intake Total 120 ml Output Total 800 ml Balance -680 ml Intake Oral 120 ml Output Urine Total 800 ml # Voids 2 General: Alert, Oriented X3, Cooperative Abdomen: Soft, Other (ttp lower abdomen ) Labs Laboratory Tests Test 09/30/21 13:48 10/01/21 06:40 10/02/21 04:35 10/02/21 07:53 Glucose (Fingerstick) 80 mg/dL (70-99) 142 mg/dL (70-99) White Blood Count 19.7 x10^3/uL (4.0-11.0) 21.5 x10^3/uL (4.0-11.0) Red Blood Count 2.19 x10^6/uL (3.50-5.40) 2.35 x10^6/uL (3.50-5.40) Hemoglobin 6.4 g/dL (12.0-15.5) 6.8 g/dL (12.0-15.5) Hematocrit 19.6 % (36.0-47.0) 20.7 % (36.0-47.0) Mean Corpuscular Volume 89 fL (79-100) 88 fL (79-100) Mean Corpuscular Hemoglobin 29 pg (25-35) 29 pg (25-35) Mean Corpuscular Hemoglobin Concent 33 g/dL (31-37) 33 g/dL (31-37) Red Cell Distribution Width 16.8 % (11.5-14.5) 17.1 % (11.5-14.5) Platelet Count 755 x10^3/uL (140-400) 828 x10^3/uL (140-400) Neutrophils (%) (Auto) 79 % (31-73) 87 % (31-73) Lymphocytes (%) (Auto) 14 % (24-48) 5 % (24-48) Monocytes (%) (Auto) 6 % (0-9) 7 % (0-9) Eosinophils (%) (Auto) 1 % (0-3) 0 % (0-3) Basophils (%) (Auto) 0 % (0-3) 0 % (0-3) Neutrophils # (Auto) 15.5 x10^3/uL (1.8-7.7) 18.7 x10^3/uL (1.8-7.7) Lymphocytes # (Auto) 2.7 x10^3/uL (1.0-4.8) 1.1 x10^3/uL (1.0-4.8) Monocytes # (Auto) 1.3 x10^3/uL (0.0-1.1) 1.5 x10^3/uL (0.0-1.1) Eosinophils # (Auto) 0.2 x10^3/uL (0.0-0.7) 0.1 x10^3/uL (0.0-0.7) Basophils # (Auto) 0.0 x10^3/uL (0.0-0.2) 0.1 x10^3/uL (0.0-0.2) Sodium Level 138 mmol/L (136-145) 137 mmol/L (136-145) Potassium Level 3.7 mmol/L (3.5-5.1) 3.8 mmol/L (3.5-5.1) Chloride Level 100 mmol/L (98-107) 98 mmol/L (98-107) Carbon Dioxide Level 29 mmol/L (21-32) 26 mmol/L (21-32) Anion Gap 9 (6-14) 13 (6-14) Blood Urea Nitrogen 7 mg/dL (7-20) 7 mg/dL (7-20) Creatinine 0.7 mg/dL (0.6-1.0) 0.5 mg/dL (0.6-1.0) Estimated GFR (Cockcroft-Gault) 87.5 129.1 BUN/Creatinine Ratio 10 (6-20) 14 (6-20) Glucose Level 79 mg/dL (70-99) 127 mg/dL (70-99) Calcium Level 8.5 mg/dL (8.5-10.1) 8.5 mg/dL (8.5-10.1) Total Bilirubin 0.4 mg/dL (0.2-1.0) 0.4 mg/dL (0.2-1.0) Aspartate Amino Transf (AST/SGOT) 57 U/L (15-37) 65 U/L (15-37) Alanine Aminotransferase (ALT/SGPT) 44 U/L (14-59) 61 U/L (14-59) Alkaline Phosphatase 107 U/L (46-116) 106 U/L (46-116) Total Protein 6.0 g/dL (6.4-8.2) 5.8 g/dL (6.4-8.2) Albumin 1.7 g/dL (3.4-5.0) 1.6 g/dL (3.4-5.0) Albumin/Globulin Ratio 0.4 (1.0-1.7) 0.4 (1.0-1.7) Laboratory Tests Test 10/02/21 04:35 10/02/21 07:53 White Blood Count 21.5 x10^3/uL (4.0-11.0) Red Blood Count 2.35 x10^6/uL (3.50-5.40) Hemoglobin 6.8 g/dL (12.0-15.5) Hematocrit 20.7 % (36.0-47.0) Mean Corpuscular Volume 88 fL (79-100) Mean Corpuscular Hemoglobin 29 pg (25-35) Mean Corpuscular Hemoglobin Concent 33 g/dL (31-37) Red Cell Distribution Width 17.1 % (11.5-14.5) Platelet Count 828 x10^3/uL (140-400) Neutrophils (%) (Auto) 87 % (31-73) Lymphocytes (%) (Auto) 5 % (24-48) Monocytes (%) (Auto) 7 % (0-9) Eosinophils (%) (Auto) 0 % (0-3) Basophils (%) (Auto) 0 % (0-3) Neutrophils # (Auto) 18.7 x10^3/uL (1.8-7.7) Lymphocytes # (Auto) 1.1 x10^3/uL (1.0-4.8) Monocytes # (Auto) 1.5 x10^3/uL (0.0-1.1) Eosinophils # (Auto) 0.1 x10^3/uL (0.0-0.7) Basophils # (Auto) 0.1 x10^3/uL (0.0-0.2) Sodium Level 137 mmol/L (136-145) Potassium Level 3.8 mmol/L (3.5-5.1) Chloride Level 98 mmol/L (98-107) Carbon Dioxide Level 26 mmol/L (21-32) Anion Gap 13 (6-14) Blood Urea Nitrogen 7 mg/dL (7-20) Creatinine 0.5 mg/dL (0.6-1.0) Estimated GFR (Cockcroft-Gault) 129.1 BUN/Creatinine Ratio 14 (6-20) Glucose Level 127 mg/dL (70-99) Calcium Level 8.5 mg/dL (8.5-10.1) Total Bilirubin 0.4 mg/dL (0.2-1.0) Aspartate Amino Transf (AST/SGOT) 65 U/L (15-37) Alanine Aminotransferase (ALT/SGPT) 61 U/L (14-59) Alkaline Phosphatase 106 U/L (46-116) Total Protein 5.8 g/dL (6.4-8.2) Albumin 1.6 g/dL (3.4-5.0) Albumin/Globulin Ratio 0.4 (1.0-1.7) Glucose (Fingerstick) 142 mg/dL (70-99) Assessment/Plan Ct reviewed will ask IR to eval for perc drain dc lovenox, 1 unit PRBC Justicifation of Admission Dx: Justifications for Admission: Justification of Admission Dx: Yes VIRY BALLARD REVENUE CYCLE CONSULTANT Oct 02, 2021 11:29
[2021-10-02 12:44] LABS: PROTHROMBIN TIME PATIENT 16.4 SEC (11.7-14.0)
[2021-10-02] MEDS: AA 4.25 %/CALCIUM/LYTES/D5W 1,000 ML IV SCH (14:00)
--- NOTE | 2021-10-02 14:23 | CONS ---
DATE OF CONSULTATION: 10/02/2021 REQUESTING PHYSICIAN: Fredo Nguyen MD REASON FOR CONSULTATION: Leukocytosis. HISTORY OF PRESENT ILLNESS: This is a 51-year-old female who was admitted with abdominal pain. The patient in fact was noted to have perforated appendix. The patient was taken to the OR and found to have obliterated appendix ruptured into right mesocolon. The patient had laparoscopically assisted right colectomy. Postoperative course was complicated by pain and white count went up. Now, CAT scan has been ordered. The patient is on Zosyn. Other than abdominal pain, some slight nausea. No other complaint. The patient denies any fever or chills. Denies any chest pain, shortness of breath or urinary symptoms. PAST MEDICAL HISTORY: Positive for history of herniated disk, history of sarcoidosis, she has had bariatric gastric sleeve surgery done in the past, kidney stones, diabetes. SOCIAL HISTORY: Negative for smoking. Alcohol use is social, weekend use. ALLERGIES: No known drug allergies. CURRENT MEDICATIONS: The patient is on Zosyn. REVIEW OF SYSTEMS: As per HPI. All other systems reviewed are negative. PHYSICAL EXAMINATION: GENERAL: Alert, oriented female, not in distress. VITAL SIGNS: Temperature 98.4, pulse 103, respirations 18, blood pressure 143/77. HEENT: Both pupils are round and reacting. No conjunctival lesion. No lesion in the mouth. NECK: Supple. No JVP, no lymphadenopathy. LUNGS: Clear. HEART: S1, S2, regular. ABDOMEN: Soft. Mild diffuse tenderness present. No rebound or guarding. EXTREMITIES: No edema or cyanosis. SKIN: Unremarkable. NEUROLOGIC: The patient is alert, awake, and appropriate. No focal neurologic deficit. LABORATORY DATA: White count is 21.5, hemoglobin 6.8, platelets are 828,000. BUN and creatinine is normal. AST is 65, ALT is 61. Intraoperative culture had shown E. coli, Enterococcus faecalis, Bacteroides, Parvimonas. IMPRESSION: 1. Ruptured appendix. 2. Leukocytosis, most likely has abdominal abscess. 3. Diabetes mellitus. 4. Hypertension. 5. Gastroesophageal reflux disease. 6. Chronic back problem. RECOMMENDATIONS: Continue Zosyn. Await further CT and CT drainage of abscess if they found one and we will continue to follow. Thank you very much Dr. Nguyen for giving me opportunity to participate in this patient's care. SRD/CATALINO/JUN DR: TASHI/porsha TID: [id number]
--- NOTE | 2021-10-02 14:26 | NUR ---
This RN and CODY Nicholson attempted 2nd IV, no success. COATING MACHINE HELPER to come attempt. IR notified of pt's IV/blood admin status.
[2021-10-02] MEDS ORDERED: LIDOCAINE WITH 8.4% SOD BICARB 3 ML DISP.SYRIN. ONE (14:52)
[2021-10-02] MEDS ORDERED: ONDANSETRON PF 4 MG/2 ML VIAL. ONE (15:00)
[2021-10-02] MEDS ORDERED: fentaNYL PF VIAL 100 MCG/2 ML VIAL ONE (15:00)
[2021-10-02] MEDS ORDERED: MIDAZOLAM HCL/PF 2 MG/2 ML VIAL. ONE (15:00)
[2021-10-02] MEDS ORDERED: ONDANSETRON PF 4 MG/2 ML VIAL. IVP ONE (15:15)
[2021-10-02] MEDS ORDERED: fentaNYL PF VIAL 100 MCG/2 ML VIAL IV ONE (15:15)
[2021-10-02] MEDS ORDERED: LIDOCAINE WITH 8.4% SOD BICARB 3 ML DISP.SYRIN. IJ ONE (15:15)
[2021-10-02] MEDS ORDERED: MIDAZOLAM HCL/PF 2 MG/2 ML VIAL. IV ONE (15:15)
--- NOTE | 2021-10-02 15:59 | RAD ---
Site ID: [id number] EXAMINATION: Ultrasound guided drain placement. (Peritoneal/Retroperitoneal CPT 10114) (Moderate sedation (CPT fill) INDICATION: Right flank peritoneal abscess. SEDATION: Under physician supervision, Versed and fentanyl were administered intravenously for moder ate sedation. Pulse oximetry, heart rate, and BP were continuously monitored by an independent train ed observer present. The physician spent 15 minutes of [id number] sedation time with the patient. CONSENT: Informed consent was obtained. The risks, benefits, potential complications and alternatives were reviewed and all questions answered. PROCEDURE: After maximal sterile barrier preparation and draping, 1% lidocaine was utilized for local anesthesia. With the patient in right side up position, lateral approach was selected. A 19-gauge One step sheat hed needle was introduced utilizing live ultrasound guidance into the right flank fluid collection in the peritoneal paracolic gutter. Ultrasound images documented to confirm appropriate positioning. Af ter standard over a guidewire exchange technique and after serial dilatation, a [address] aced and distal loop formed in the collection. A 70 ml of cloudy brown fluid is aspirated and sent to microbiology. The drainage catheter is connected to TANIA bulb. The patient tolerated the procedure well with no immediate complications. FINDINGS: Right flank fluid collection. IMPRESSION: Successful ultrasound-guided, 14 Venezuelan, drain placement in right flank fluid collection. Electronically signed by: Eagle Lunsford MD (10/02/2021 3:56 PM) [id number]
[2021-10-03] MEDS: IV NORMAL SALINE 1000ML BAG 1,000 ML IV SCH (01:15)
[2021-10-03] MEDS: IV RINGERS,LACTATED 1000ML 1,000 ML IV SCH ×2 (01:35→14:00)
[2021-10-03] MEDS: AA 4.25 %/CALCIUM/LYTES/D5W 1,000 ML IV SCH ×3 (01:35→21:41)
--- NOTE | 2021-10-03 02:11 | NUR ---
Up to BSC. Had large green-brown liquid stool with some solid stool as well.
[2021-10-03 03:00] VITALS: BP 127/82
[2021-10-03] MEDS: PIPERACILLIN/TAZOBACTAM 3.375 GM in IV NORMAL SALINE 50ML 50 ML IV SCH ×3 (05:06→17:43)
[2021-10-03 07:00] VITALS: BP 124/71
[2021-10-03] MEDS: PANTOPRAZOLE 40 MG TABLET.DR. PO SCH (07:30)
[2021-10-03 07:54] LABS: BASO # 0.1 x10^3/uL (0.0-0.2); BASO % 0 % (0-3); EOS # 0.1 x10^3/uL (0.0-0.7); EOS % 1 % (0-3); LYMPH # 1.7 x10^3/uL (1.0-4.8); LYMPH % 13 % (24-48); MEAN CORPUSCULAR HEMOGLOBIN 29 pg (25-35); MEAN CORPUSCULAR HGB CONC 33 g/dL (31-37); MEAN CORPUSCULAR VOLUME 86 fL (79-100); MONO # 1.1 x10^3/uL (0.0-1.1); MONO % 8 % (0-9); NEUT # 10.3 x10^3/uL (1.8-7.7); NEUT % 77 % (31-73); PLATELET COUNT 777 x10^3/uL (140-400); RED BLOOD COUNT 2.42 x10^6/uL (3.50-5.40); WHITE BLOOD COUNT 13.3 x10^3/uL (4.0-11.0)
[2021-10-03 07:58] LABS: HEMATOCRIT 20.9 % (36.0-47.0)
[2021-10-03] MEDS: TOBRAMYCIN 0.3% OPHTH SOLUTION 5ML BOTTLE. OD SCH ×3 (08:45→22:14)
--- NOTE | 2021-10-03 10:22 | PDOC ---
SURGICAL PROGRESS NOTE DATE: 10/03/21 TIME: 10:21 Subjective Patient doing well other than pain at IR drain site Vital Signs Vital Signs Date Time Temp Pulse Resp B/P (MAP) Pulse Ox O2 Delivery O2 Flow Rate FiO2 10/03/21 07:00 97.7 80 16 124/71 (88) 96 Nasal Cannula 1.0 97.7 I&O Intake and Output 10/03/21 07:00 Intake Total 730 ml Output Total 245 ml Balance 485 ml Intake Oral 630 ml IV Total 100 ml Output Urine Total 200 ml Drainage Total 45 ml # Voids 6 # Bowel Movements 1 PATIENT HAS A GIPSON: No General: Alert, Oriented X3, Cooperative, mild distress Abdomen: Normal bowel sounds, Soft, Other (Mild incisional tenderness wounds clean dry and intact. TANIA drain with cloudy serosanguineous output) Labs Laboratory Tests Test 10/02/21 04:35 10/02/21 07:53 10/02/21 12:20 10/03/21 06:20 White Blood Count 21.5 x10^3/uL (4.0-11.0) 13.3 x10^3/uL (4.0-11.0) Red Blood Count 2.35 x10^6/uL (3.50-5.40) 2.42 x10^6/uL (3.50-5.40) Hemoglobin 6.8 g/dL (12.0-15.5) 7.0 g/dL (12.0-15.5) Hematocrit 20.7 % (36.0-47.0) 20.9 % (36.0-47.0) Mean Corpuscular Volume 88 fL (79-100) 86 fL (79-100) Mean Corpuscular Hemoglobin 29 pg (25-35) 29 pg (25-35) Mean Corpuscular Hemoglobin Concent 33 g/dL (31-37) 33 g/dL (31-37) Red Cell Distribution Width 17.1 % (11.5-14.5) 17.0 % (11.5-14.5) Platelet Count 828 x10^3/uL (140-400) 777 x10^3/uL (140-400) Neutrophils (%) (Auto) 87 % (31-73) 77 % (31-73) Lymphocytes (%) (Auto) 5 % (24-48) 13 % (24-48) Monocytes (%) (Auto) 7 % (0-9) 8 % (0-9) Eosinophils (%) (Auto) 0 % (0-3) 1 % (0-3) Basophils (%) (Auto) 0 % (0-3) 0 % (0-3) Neutrophils # (Auto) 18.7 x10^3/uL (1.8-7.7) 10.3 x10^3/uL (1.8-7.7) Lymphocytes # (Auto) 1.1 x10^3/uL (1.0-4.8) 1.7 x10^3/uL (1.0-4.8) Monocytes # (Auto) 1.5 x10^3/uL (0.0-1.1) 1.1 x10^3/uL (0.0-1.1) Eosinophils # (Auto) 0.1 x10^3/uL (0.0-0.7) 0.1 x10^3/uL (0.0-0.7) Basophils # (Auto) 0.1 x10^3/uL (0.0-0.2) 0.1 x10^3/uL (0.0-0.2) Sodium Level 137 mmol/L (136-145) Potassium Level 3.8 mmol/L (3.5-5.1) Chloride Level 98 mmol/L (98-107) Carbon Dioxide Level 26 mmol/L (21-32) Anion Gap 13 (6-14) Blood Urea Nitrogen 7 mg/dL (7-20) Creatinine 0.5 mg/dL (0.6-1.0) Estimated GFR (Cockcroft-Gault) 129.1 BUN/Creatinine Ratio 14 (6-20) Glucose Level 127 mg/dL (70-99) Calcium Level 8.5 mg/dL (8.5-10.1) Total Bilirubin 0.4 mg/dL (0.2-1.0) Aspartate Amino Transf (AST/SGOT) 65 U/L (15-37) Alanine Aminotransferase (ALT/SGPT) 61 U/L (14-59) Alkaline Phosphatase 106 U/L (46-116) Total Protein 5.8 g/dL (6.4-8.2) Albumin 1.6 g/dL (3.4-5.0) Albumin/Globulin Ratio 0.4 (1.0-1.7) Glucose (Fingerstick) 142 mg/dL (70-99) Prothrombin Time 16.4 SEC (11.7-14.0) Prothromb Time International Ratio 1.3 (0.8-1.1) Laboratory Tests Test 10/02/21 12:20 10/03/21 06:20 Prothrombin Time 16.4 SEC (11.7-14.0) Prothromb Time International Ratio 1.3 (0.8-1.1) White Blood Count 13.3 x10^3/uL (4.0-11.0) Red Blood Count 2.42 x10^6/uL (3.50-5.40) Hemoglobin 7.0 g/dL (12.0-15.5) Hematocrit 20.9 % (36.0-47.0) Mean Corpuscular Volume 86 fL (79-100) Mean Corpuscular Hemoglobin 29 pg (25-35) Mean Corpuscular Hemoglobin Concent 33 g/dL (31-37) Red Cell Distribution Width 17.0 % (11.5-14.5) Platelet Count 777 x10^3/uL (140-400) Neutrophils (%) (Auto) 77 % (31-73) Lymphocytes (%) (Auto) 13 % (24-48) Monocytes (%) (Auto) 8 % (0-9) Eosinophils (%) (Auto) 1 % (0-3) Basophils (%) (Auto) 0 % (0-3) Neutrophils # (Auto) 10.3 x10^3/uL (1.8-7.7) Lymphocytes # (Auto) 1.7 x10^3/uL (1.0-4.8) Monocytes # (Auto) 1.1 x10^3/uL (0.0-1.1) Eosinophils # (Auto) 0.1 x10^3/uL (0.0-0.7) Basophils # (Auto) 0.1 x10^3/uL (0.0-0.2) Assessment/Plan Status post right hemicolectomy for perforated appendicitis status post IR drain for abscess Continue supportive care Maintain clear liquid diet at this time hopefully advance shortly Justicifation of Admission Dx: Justifications for Admission: Justification of Admission Dx: Yes THOMAS MEEK MD Oct 03, 2021 10:22
[2021-10-03] MEDS: HYDROmorphone 12mg/30ml PCA 30 ML IV PRN (10:42)
[2021-10-03 11:00] VITALS: BP 137/83
--- NOTE | 2021-10-03 13:27 | PDOC ---
Infectious Disease Note Subjective Subjective Patient with complaints of pain at IR drainage site Otherwise no other complaints ROS ROS no n/v/d/ Vital Sign Vital Signs Vital Signs Date Time Temp Pulse Resp B/P (MAP) Pulse Ox O2 Delivery O2 Flow Rate FiO2 10/03/21 11:55 16 10/03/21 11:00 97.6 98 137/83 (101) 98 Nasal Cannula 1.0 97.6 Physical Exam PHYSICAL EXAM GENERAL: Alert, oriented female, not in distress. HEENT: Both pupils are round and reacting. No conjunctival lesion. No lesion in the mouth. NECK: Supple. No JVP, no lymphadenopathy. LUNGS: Clear. HEART: S1, S2, regular. ABDOMEN: Soft. Mild diffuse tenderness present. No rebound or guarding. EXTREMITIES: No edema or cyanosis. SKIN: Unremarkable. NEUROLOGIC: The patient is alert, awake, and appropriate. No focal neurologic deficit. Labs Lab Laboratory Tests Test 10/03/21 06:20 White Blood Count 13.3 x10^3/uL (4.0-11.0) Red Blood Count 2.42 x10^6/uL (3.50-5.40) Hemoglobin 7.0 g/dL (12.0-15.5) Hematocrit 20.9 % (36.0-47.0) Mean Corpuscular Volume 86 fL (79-100) Mean Corpuscular Hemoglobin 29 pg (25-35) Mean Corpuscular Hemoglobin Concent 33 g/dL (31-37) Red Cell Distribution Width 17.0 % (11.5-14.5) Platelet Count 777 x10^3/uL (140-400) Neutrophils (%) (Auto) 77 % (31-73) Lymphocytes (%) (Auto) 13 % (24-48) Monocytes (%) (Auto) 8 % (0-9) Eosinophils (%) (Auto) 1 % (0-3) Basophils (%) (Auto) 0 % (0-3) Neutrophils # (Auto) 10.3 x10^3/uL (1.8-7.7) Lymphocytes # (Auto) 1.7 x10^3/uL (1.0-4.8) Monocytes # (Auto) 1.1 x10^3/uL (0.0-1.1) Eosinophils # (Auto) 0.1 x10^3/uL (0.0-0.7) Basophils # (Auto) 0.1 x10^3/uL (0.0-0.2) Micro Microbiology 09/28/21 Gram Stain - Final, Complete 09/28/21 Aerobic and Anaerobic Culture - Final, Complete Objective Assessment 1. Ruptured appendix. Intra-abdominal abscess status post IR drainage 2. Leukocytosis, most likely has abdominal abscess. 3. Diabetes mellitus. 4. Hypertension. 5. Gastroesophageal reflux disease. 6. Chronic back problem. Plan Plan of Care Continue Zosyn Monitor labs and cultures Continue supportive care DAVE MOORE MD Oct 03, 2021 13:27
[2021-10-03 15:54] VITALS: BP 132/76
[2021-10-03 19:00] VITALS: BP 149/80
[2021-10-03 23:00] VITALS: BP 126/75
[2021-10-04] VITALS (7 sets, daily range): BP systolic 115–147; BP diastolic 65–78
[2021-10-04] MEDS: PIPERACILLIN/TAZOBACTAM 3.375 GM in IV NORMAL SALINE 50ML 50 ML IV SCH ×4 (00:22→18:14)
[2021-10-04] MEDS: IV NORMAL SALINE 1000ML BAG 1,000 ML IV SCH (01:15)
[2021-10-04] MEDS: PANTOPRAZOLE 40 MG TABLET.DR. PO SCH (07:30)
[2021-10-04] MEDS: TOBRAMYCIN 0.3% OPHTH SOLUTION 5ML BOTTLE. OD SCH ×3 (08:31→20:28)
[2021-10-04] MEDS: IV RINGERS,LACTATED 1000ML 1,000 ML IV SCH ×2 (09:35)
--- NOTE | 2021-10-04 09:36 | PDOC ---
SURGICAL PROGRESS NOTE DATE: 10/04/21 TIME: 09:35 Subjective Patient feeling better passing flatus had a bowel movement still having pain on the right side where the drain was placed Vital Signs Vital Signs Date Time Temp Pulse Resp B/P (MAP) Pulse Ox O2 Delivery O2 Flow Rate FiO2 10/04/21 07:31 98.3 82 20 115/74 (88) 98 Nasal Cannula 1.0 98.3 I&O Intake and Output 10/04/21 07:00 Intake Total 610 ml Output Total 315 ml Balance 295 ml Intake Oral 610 ml Output Urine Total 300 ml Drainage Total 15 ml # Voids 7 PATIENT HAS A GIPSON: No General: Alert, Oriented X3, Cooperative, mild distress Abdomen: Normal bowel sounds, Soft, Other (Mild incisional tenderness wounds clean dry and intact TANIA drain intact with serosanguineous output) Labs Laboratory Tests Test 10/02/21 12:20 10/03/21 06:20 Prothrombin Time 16.4 SEC (11.7-14.0) Prothromb Time International Ratio 1.3 (0.8-1.1) White Blood Count 13.3 x10^3/uL (4.0-11.0) Red Blood Count 2.42 x10^6/uL (3.50-5.40) Hemoglobin 7.0 g/dL (12.0-15.5) Hematocrit 20.9 % (36.0-47.0) Mean Corpuscular Volume 86 fL (79-100) Mean Corpuscular Hemoglobin 29 pg (25-35) Mean Corpuscular Hemoglobin Concent 33 g/dL (31-37) Red Cell Distribution Width 17.0 % (11.5-14.5) Platelet Count 777 x10^3/uL (140-400) Neutrophils (%) (Auto) 77 % (31-73) Lymphocytes (%) (Auto) 13 % (24-48) Monocytes (%) (Auto) 8 % (0-9) Eosinophils (%) (Auto) 1 % (0-3) Basophils (%) (Auto) 0 % (0-3) Neutrophils # (Auto) 10.3 x10^3/uL (1.8-7.7) Lymphocytes # (Auto) 1.7 x10^3/uL (1.0-4.8) Monocytes # (Auto) 1.1 x10^3/uL (0.0-1.1) Eosinophils # (Auto) 0.1 x10^3/uL (0.0-0.7) Basophils # (Auto) 0.1 x10^3/uL (0.0-0.2) Assessment/Plan Perforated appendicitis with right colectomy Advance diet Continue supportive care Justicifation of Admission Dx: Justifications for Admission: Justification of Admission Dx: Yes THOMAS MEEK MD Oct 04, 2021 09:36
[2021-10-04] MEDS ORDERED: HYDROmorphone 2 MG TABLET PO PRN (09:45)
[2021-10-04] MEDS ORDERED: oxyCODONE/APAP 5/325 1 TAB TABLET PO PRN (09:45)
[2021-10-04] MEDS: oxyCODONE/APAP 5/325 1 TAB TABLET PO PRN ×3 (11:12→20:29)
--- NOTE | 2021-10-04 17:37 | PDOC ---
Infectious Disease Note Subjective Subjective Patient is feeling really good, no complaints ROS ROS no n/v/d/ Vital Sign Vital Signs Vital Signs Date Time Temp Pulse Resp B/P (MAP) Pulse Ox O2 Delivery O2 Flow Rate FiO2 10/04/21 15:07 16 10/04/21 15:00 97.6 78 126/65 (85) 97 Nasal Cannula 1.0 97.6 Physical Exam PHYSICAL EXAM GENERAL: Alert, oriented female, not in distress. HEENT: Both pupils are round and reacting. No conjunctival lesion. No lesion in the mouth. NECK: Supple. No JVP, no lymphadenopathy. LUNGS: Clear. HEART: S1, S2, regular. ABDOMEN: Soft. Mild diffuse tenderness present. No rebound or guarding. EXTREMITIES: No edema or cyanosis. SKIN: Unremarkable. NEUROLOGIC: The patient is alert, awake, and appropriate. No focal neurologic deficit. Labs Micro Microbiology 09/28/21 Gram Stain - Final, Complete 09/28/21 Aerobic and Anaerobic Culture - Final, Complete Objective Assessment 1. Ruptured appendix. Intra-abdominal abscess status post IR drainage 2. Leukocytosis, most likely has abdominal abscess. 3. Diabetes mellitus. 4. Hypertension. 5. Gastroesophageal reflux disease. 6. Chronic back problem. Plan Plan of Care Continue Zosyn Monitor labs and cultures Continue supportive care DAVE MOORE MD Oct 04, 2021 17:37
[2021-10-04] MEDS: LACTOBACILLUS RHAMNOSUS GG 1 CAPSULE. PO SCH (20:28)
[2021-10-05] MEDS: PIPERACILLIN/TAZOBACTAM 3.375 GM in IV NORMAL SALINE 50ML 50 ML IV SCH ×5 (00:25→23:28)
[2021-10-05] MEDS: oxyCODONE/APAP 5/325 1 TAB TABLET PO PRN ×5 (01:56→23:27)
[2021-10-05 03:00] VITALS: BP 116/71
[2021-10-05 07:00] VITALS: BP 122/68
[2021-10-05] MEDS: PANTOPRAZOLE 40 MG TABLET.DR. PO SCH (07:30)
[2021-10-05] MEDS: TOBRAMYCIN 0.3% OPHTH SOLUTION 5ML BOTTLE. OD SCH ×3 (07:57→22:48)
[2021-10-05] MEDS: LACTOBACILLUS RHAMNOSUS GG 1 CAPSULE. PO SCH ×2 (07:57→21:00)
--- NOTE | 2021-10-05 08:35 | PDOC ---
Infectious Disease Note Subjective: Subjective Patient is feeling really good, no complaints Vital Signs: Vital Signs Vital Signs Date Time Temp Pulse Resp B/P (MAP) Pulse Ox O2 Delivery O2 Flow Rate FiO2 10/05/21 07:57 Room Air 10/05/21 03:00 98.2 79 16 116/71 (86) 94 98.2 10/04/21 20:00 1.0 Physical Exam: PHYSICAL EXAM GENERAL: Alert, oriented female, not in distress. HEENT: Both pupils are round and reacting. No conjunctival lesion. No lesion in the mouth. NECK: Supple. No JVP, no lymphadenopathy. LUNGS: Clear. HEART: S1, S2, regular. ABDOMEN: Soft. Mild diffuse tenderness present. No rebound or guarding. EXTREMITIES: No edema or cyanosis. SKIN: Unremarkable. NEUROLOGIC: The patient is alert, awake, and appropriate. No focal neurologic deficit. Medications: Inpatient Meds: Medications reviewed. Labs: Micro ESCHERICHIA COLI ENTEROCOCCUS FAECALIS BACTEROIDES THETAIOTAOMICRON G PARVIMONAS [place] Objective: Assessment: 1. Ruptured appendix. Intra-abdominal abscess status post IR drainage 2. Leukocytosis, most likely has abdominal abscess. 3. Diabetes mellitus. 4. Hypertension. 5. Gastroesophageal reflux disease. 6. Chronic back problem. Plan: Plan of Care Continue Zosyn Monitor labs and cultures, last WBC noted from 10/03/2021 Continue supportive care ALLEN MOORE MD Oct 05, 2021 08:35
[2021-10-05 11:00] VITALS: BP 143/66
--- NOTE | 2021-10-05 13:02 | PDOC ---
SURGICAL PROGRESS NOTE DATE: 10/05/21 TIME: 13:01 Subjective some stool cramping pains no nausea Vital Signs Vital Signs Date Time Temp Pulse Resp B/P (MAP) Pulse Ox O2 Delivery O2 Flow Rate FiO2 10/05/21 12:15 Room Air 10/05/21 11:00 98.1 66 18 143/66 (91) 16 98.1 10/04/21 20:00 1.0 I&O Intake and Output 10/05/21 07:00 Intake Total 210 ml Balance 210 ml Intake Oral 210 ml # Voids 11 # Bowel Movements 2 General: Alert, Oriented X3, Cooperative Abdomen: Soft, Other (drain serosang) Problem List advance diet, check CBC Justicifation of Admission Dx: Justifications for Admission: Justification of Admission Dx: Yes VIRY BALLARD DRAFTER ELECTROMECHANICAL Oct 05, 2021 13:02
[2021-10-05 14:39] LABS: BASO # 0.1 x10^3/uL (0.0-0.2); BASO % 0 % (0-3); EOS # 0.4 x10^3/uL (0.0-0.7); EOS % 2 % (0-3); HEMATOCRIT 23.8 % (36.0-47.0); HEMOGLOBIN 7.7 g/dL (12.0-15.5); LYMPH # 1.9 x10^3/uL (1.0-4.8); LYMPH % 12 % (24-48); MEAN CORPUSCULAR HEMOGLOBIN 28 pg (25-35); MEAN CORPUSCULAR HGB CONC 32 g/dL (31-37); MEAN CORPUSCULAR VOLUME 88 fL (79-100); MONO # 1.1 x10^3/uL (0.0-1.1); MONO % 7 % (0-9); NEUT # 11.9 x10^3/uL (1.8-7.7); NEUT % 78 % (31-73); PLATELET COUNT 895 x10^3/uL (140-400); RED BLOOD COUNT 2.72 x10^6/uL (3.50-5.40); RED CELL DISTRIBUTION WIDTH 16.6 % (11.5-14.5); WHITE BLOOD COUNT 15.3 x10^3/uL (4.0-11.0)
[2021-10-05 15:00] VITALS: BP 131/62
[2021-10-05 19:00] VITALS: BP 132/71
[2021-10-05 23:00] VITALS: BP 159/80
[2021-10-05] MEDS: IV RINGERS,LACTATED 1000ML 1,000 ML IV SCH (23:34)
[2021-10-06 03:00] VITALS: BP 136/90
[2021-10-06] MEDS: oxyCODONE/APAP 5/325 1 TAB TABLET PO PRN ×5 (04:18→20:33)
[2021-10-06] MEDS: PIPERACILLIN/TAZOBACTAM 3.375 GM in IV NORMAL SALINE 50ML 50 ML IV SCH ×3 (05:56→20:00)
[2021-10-06 07:15] VITALS: BP 140/77
--- NOTE | 2021-10-06 08:18 | PDOC ---
Infectious Disease Note Subjective: Subjective Patient is feeling better Has right upper lid stye which causes irritation. No vision loss or eye pain Vital Signs: Vital Signs Vital Signs Date Time Temp Pulse Resp B/P (MAP) Pulse Ox O2 Delivery O2 Flow Rate FiO2 10/06/21 07:15 98.7 76 18 140/77 (98) 96 Room Air 98.7 Physical Exam: PHYSICAL EXAM GENERAL: Alert, oriented female, not in distress. HEENT: Both pupils are round and reacting. No conjunctival lesion. No lesion in the mouth. NECK: Supple. No JVP, no lymphadenopathy. LUNGS: Clear. HEART: S1, S2, regular. ABDOMEN: Soft. Mild diffuse tenderness present. No rebound or guarding. EXTREMITIES: No edema or cyanosis. SKIN: Unremarkable. NEUROLOGIC: The patient is alert, awake, and appropriate. No focal neurologic deficit. Medications: Inpatient Meds: Medications reviewed. Labs: Lab Laboratory Tests Test 10/05/21 14:00 White Blood Count 15.3 x10^3/uL (4.0-11.0) Red Blood Count 2.72 x10^6/uL (3.50-5.40) Hemoglobin 7.7 g/dL (12.0-15.5) Hematocrit 23.8 % (36.0-47.0) Mean Corpuscular Volume 88 fL (79-100) Mean Corpuscular Hemoglobin 28 pg (25-35) Mean Corpuscular Hemoglobin Concent 32 g/dL (31-37) Red Cell Distribution Width 16.6 % (11.5-14.5) Platelet Count 895 x10^3/uL (140-400) Neutrophils (%) (Auto) 78 % (31-73) Lymphocytes (%) (Auto) 12 % (24-48) Monocytes (%) (Auto) 7 % (0-9) Eosinophils (%) (Auto) 2 % (0-3) Basophils (%) (Auto) 0 % (0-3) Neutrophils # (Auto) 11.9 x10^3/uL (1.8-7.7) Lymphocytes # (Auto) 1.9 x10^3/uL (1.0-4.8) Monocytes # (Auto) 1.1 x10^3/uL (0.0-1.1) Eosinophils # (Auto) 0.4 x10^3/uL (0.0-0.7) Basophils # (Auto) 0.1 x10^3/uL (0.0-0.2) Micro ESCHERICHIA COLI MAYLIN GLABRATA ANTIMICROBIAL SUSCEPTIBILITY Preliminary Comment NEG ALYSSA 56 ESCHERICHIA COLI ANTIBIOTIC RESULT INTERPRETATION AMPICILLIN/SULBACTAM <=4/2 S AMIKACIN <=16 S AMPICILLIN <=8 S AMOXICILLIN/K CLAVULANATE <=8/4 S AZTREONAM <=4 S CEFTRIAXONE <=1 S CEFTAZIDIME <=1 S CEFOTAXIME <=2 S CEFOXITIN <=8 S CEFAZOLIN <=2 S CIPROFLOXACIN <=0.25 S CEFEPIME <=2 S RUN DATE: 10/05/21 [facility] *LIVE* PAGE 2 RUN TIME: 1148 Specimen Inquiry SPEC: [id number] PATIENT: NATREHAN S [id number] (Continued) Procedure Result --- --------- CONTINUED ON NEXT PAGE RUN DATE: 10/05/21 [facility] *LIVE* PAGE 3 RUN TIME: 1148 Specimen Inquiry SPEC: [id number] PATIENT: REHAN JOHNS [id number] (Continued) Procedure Result ANTIMICROBIAL SUSCEPTIBILITY Preliminary (continued) CEFUROXIME <=4 S CEFTAZIDIME/AVIBACTAM <=4 S ERTAPENEM <=0.5 S GENTAMICIN <=2 S LEVOFLOXACIN <=0.5 S MEROPENEM <=1 S PIPERACILLIN/TAZOBACTAM <=8 S TRIMETHOPRIM/SULFAMETHOXAZOLE <=0.5/9.5 S TETRACYCLINE <=4 S TOBRAMYCIN <=2 S Unless otherwise specified, Testing Performed by: [address] [address] For Inquires, the Physician may contact the Microbiology department at [phone] ESCHERICHIA COLI ENTEROCOCCUS FAECALIS BACTEROIDES THETAIOTAOMICRON G PARVIMONAS [place] Objective: Assessment: 1. Ruptured appendix. Status post surgery laparoscopically assisted right colectomy September 28 cultures polymicrobial as above Intra-abdominal abscess status post IR drainage 10/02 Cultures positive for E. coli and Maylin glabrata 2. Leukocytosis, most likely has abdominal abscess. 3. Diabetes mellitus. 4. Hypertension. 5. Gastroesophageal reflux disease. 6. Chronic back problem. 7. Right upper lid stye Plan: Plan of Care Continue Zosyn start micafungin Local eye care including warm compresses Monitor labs and cultures Continue supportive care ALLEN MOORE MD Oct 06, 2021 08:17
[2021-10-06] MEDS: LACTOBACILLUS RHAMNOSUS GG 1 CAPSULE. PO SCH ×2 (08:20→20:32)
[2021-10-06] MEDS: PANTOPRAZOLE 40 MG TABLET.DR. PO SCH (08:20)
[2021-10-06] MEDS: MICAFUNGIN 100 MG in IV DEXTROSE 5% 100ML 100 ML IV SCH ×2 (08:32→08:37)
[2021-10-06] MEDS: TOBRAMYCIN 0.3% OPHTH SOLUTION 5ML BOTTLE. OD SCH ×3 (09:00→20:33)
[2021-10-06] MEDS: IV RINGERS,LACTATED 1000ML 1,000 ML IV SCH (10:00)
[2021-10-06 10:46] VITALS: BP 132/74
[2021-10-06 15:04] VITALS: BP 139/76
--- NOTE | 2021-10-06 19:06 | PDOC ---
SURGICAL PROGRESS NOTE DATE: 10/06/21 TIME: 19:03 Subjective Pt feels better, cruz PO, having stools, some pain at drain Vital Signs Vital Signs Date Time Temp Pulse Resp B/P (MAP) Pulse Ox O2 Delivery O2 Flow Rate FiO2 10/06/21 16:38 Room Air 10/06/21 15:04 98.2 71 20 139/76 (97) 96 98.2 I&O Intake and Output 10/06/21 07:00 Intake Total 480 ml Output Total 60 ml Balance 420 ml Intake Oral 480 ml Drainage Total 60 ml # Voids 4 # Bowel Movements 2 General: Alert, Oriented X3, Cooperative, No acute distress Abdomen: Soft, No tenderness, Other (dressing intact, TANIA serosang) Labs Laboratory Tests Test 10/05/21 14:00 White Blood Count 15.3 x10^3/uL (4.0-11.0) Red Blood Count 2.72 x10^6/uL (3.50-5.40) Hemoglobin 7.7 g/dL (12.0-15.5) Hematocrit 23.8 % (36.0-47.0) Mean Corpuscular Volume 88 fL (79-100) Mean Corpuscular Hemoglobin 28 pg (25-35) Mean Corpuscular Hemoglobin Concent 32 g/dL (31-37) Red Cell Distribution Width 16.6 % (11.5-14.5) Platelet Count 895 x10^3/uL (140-400) Neutrophils (%) (Auto) 78 % (31-73) Lymphocytes (%) (Auto) 12 % (24-48) Monocytes (%) (Auto) 7 % (0-9) Eosinophils (%) (Auto) 2 % (0-3) Basophils (%) (Auto) 0 % (0-3) Neutrophils # (Auto) 11.9 x10^3/uL (1.8-7.7) Lymphocytes # (Auto) 1.9 x10^3/uL (1.0-4.8) Monocytes # (Auto) 1.1 x10^3/uL (0.0-1.1) Eosinophils # (Auto) 0.4 x10^3/uL (0.0-0.7) Basophils # (Auto) 0.1 x10^3/uL (0.0-0.2) Assessment/Plan s/p lap right colon appears to be clinically improved d/w ID and agree with antifungals. cont ADAT and increasing activity Justicifation of Admission Dx: Justifications for Admission: Justification of Admission Dx: Yes XAVIER HANNON MD Oct 06, 2021 19:06
[2021-10-06 19:15] VITALS: BP 125/74
[2021-10-06 23:18] VITALS: BP 112/74
[2021-10-07] MEDS: PIPERACILLIN/TAZOBACTAM 3.375 GM in IV NORMAL SALINE 50ML 50 ML IV SCH ×4 (00:06→17:35)
[2021-10-07] MEDS: oxyCODONE/APAP 5/325 1 TAB TABLET PO PRN ×6 (00:44→21:35)
[2021-10-07 03:41] VITALS: BP 111/63
[2021-10-07] MEDS: PANTOPRAZOLE 40 MG TABLET.DR. PO SCH (05:32)
[2021-10-07 07:00] VITALS: BP 149/82
[2021-10-07 08:49] LABS: BASO # 0.1 x10^3/uL (0.0-0.2); BASO % 1 % (0-3); EOS # 0.3 x10^3/uL (0.0-0.7); EOS % 3 % (0-3); HEMATOCRIT 24.2 % (36.0-47.0); LYMPH % 14 % (24-48); MEAN CORPUSCULAR HEMOGLOBIN 29 pg (25-35); MEAN CORPUSCULAR HGB CONC 33 g/dL (31-37); MEAN CORPUSCULAR VOLUME 87 fL (79-100); MONO % 7 % (0-9); NEUT # 10.6 x10^3/uL (1.8-7.7); NEUT % 75 % (31-73); RED BLOOD COUNT 2.77 x10^6/uL (3.50-5.40); RED CELL DISTRIBUTION WIDTH 17.1 % (11.5-14.5)
[2021-10-07 09:04] LABS: PLATELET COUNT 992 x10^3/uL (140-400)
[2021-10-07 09:05] LABS: ALBUMIN/GLOBULIN RATIO 0.4 (1.0-1.7); CALCIUM 8.6 mg/dL (8.5-10.1); CREATININE 0.6 mg/dL (0.6-1.0); GFR 104.6; POTASSIUM 3.9 mmol/L (3.5-5.1); TOTAL BILIRUBIN 0.4 mg/dL (0.2-1.0); TOTAL PROTEIN 6.6 g/dL (6.4-8.2)
[2021-10-07] MEDS: TOBRAMYCIN 0.3% OPHTH SOLUTION 5ML BOTTLE. OD SCH (09:41)
[2021-10-07] MEDS: MICAFUNGIN 100 MG in IV DEXTROSE 5% 100ML 100 ML IV SCH (09:41)
[2021-10-07] MEDS: LACTOBACILLUS RHAMNOSUS GG 1 CAPSULE. PO SCH ×2 (09:41→20:28)
--- NOTE | 2021-10-07 10:39 | NUR ---
Flushed TANIA with 10cc of NS
[2021-10-07 11:00] VITALS: BP 142/68
--- NOTE | 2021-10-07 11:15 | PDOC ---
Infectious Disease Note Subjective: Subjective Patient is feeling better Abdominal pain is improving Requesting iron command insert of eyedrops for right eye upper lid swelling and irritation Vital Signs: Vital Signs Vital Signs Date Time Temp Pulse Resp B/P (MAP) Pulse Ox O2 Delivery O2 Flow Rate FiO2 10/07/21 09:42 96 Room Air 10/07/21 07:00 97.6 78 18 149/82 (104) 97.6 Physical Exam: PHYSICAL EXAM GENERAL: Alert, oriented female, not in distress. HEENT: Both pupils are round and reacting. No conjunctival lesion. No lesion in the mouth. Right upper eyelid irritation, mild redness present NECK: Supple. No JVP, no lymphadenopathy. LUNGS: Clear. HEART: S1, S2, regular. ABDOMEN: Soft. Mild diffuse tenderness present. No rebound or guarding. EXTREMITIES: No edema or cyanosis. SKIN: Unremarkable. NEUROLOGIC: The patient is alert, awake, and appropriate. No focal neurologic deficit. Medications: Inpatient Meds: Medications reviewed. Labs: Lab Laboratory Tests Test 10/07/21 08:40 White Blood Count 14.0 x10^3/uL (4.0-11.0) Red Blood Count 2.77 x10^6/uL (3.50-5.40) Hemoglobin 8.0 g/dL (12.0-15.5) Hematocrit 24.2 % (36.0-47.0) Mean Corpuscular Volume 87 fL (79-100) Mean Corpuscular Hemoglobin 29 pg (25-35) Mean Corpuscular Hemoglobin Concent 33 g/dL (31-37) Red Cell Distribution Width 17.1 % (11.5-14.5) Platelet Count 992 x10^3/uL (140-400) Neutrophils (%) (Auto) 75 % (31-73) Lymphocytes (%) (Auto) 14 % (24-48) Monocytes (%) (Auto) 7 % (0-9) Eosinophils (%) (Auto) 3 % (0-3) Basophils (%) (Auto) 1 % (0-3) Neutrophils # (Auto) 10.6 x10^3/uL (1.8-7.7) Lymphocytes # (Auto) 2.0 x10^3/uL (1.0-4.8) Monocytes # (Auto) 1.0 x10^3/uL (0.0-1.1) Eosinophils # (Auto) 0.3 x10^3/uL (0.0-0.7) Basophils # (Auto) 0.1 x10^3/uL (0.0-0.2) Sodium Level 137 mmol/L (136-145) Potassium Level 3.9 mmol/L (3.5-5.1) Chloride Level 101 mmol/L (98-107) Carbon Dioxide Level 29 mmol/L (21-32) Anion Gap 7 (6-14) Blood Urea Nitrogen 6 mg/dL (7-20) Creatinine 0.6 mg/dL (0.6-1.0) Estimated GFR (Cockcroft-Gault) 104.6 BUN/Creatinine Ratio 10 (6-20) Glucose Level 89 mg/dL (70-99) Calcium Level 8.6 mg/dL (8.5-10.1) Total Bilirubin 0.4 mg/dL (0.2-1.0) Aspartate Amino Transf (AST/SGOT) 27 U/L (15-37) Alanine Aminotransferase (ALT/SGPT) 38 U/L (14-59) Alkaline Phosphatase 103 U/L (46-116) Total Protein 6.6 g/dL (6.4-8.2) Albumin 2.0 g/dL (3.4-5.0) Albumin/Globulin Ratio 0.4 (1.0-1.7) Micro ESCHERICHIA COLI MAYLIN GLABRATA ANTIMICROBIAL SUSCEPTIBILITY Preliminary Comment NEG ALYSSA 56 ESCHERICHIA COLI ANTIBIOTIC RESULT INTERPRETATION AMPICILLIN/SULBACTAM <=4/2 S AMIKACIN <=16 S AMPICILLIN <=8 S AMOXICILLIN/K CLAVULANATE <=8/4 S AZTREONAM <=4 S CEFTRIAXONE <=1 S CEFTAZIDIME <=1 S CEFOTAXIME <=2 S CEFOXITIN <=8 S CEFAZOLIN <=2 S CIPROFLOXACIN <=0.25 S CEFEPIME <=2 S RUN DATE: 10/05/21 [facility] *LIVE* PAGE 2 RUN TIME: 1148 Specimen Inquiry SPEC: [id number] PATIENT: REHAN JOHNS [id number] (Continued) Procedure Result CONTINUED ON NEXT PAGE RUN DATE: 10/05/21 [facility] *LIVE* PAGE 3 RUN TIME: 1148 Specimen Inquiry SPEC: [id number] PATIENT: REHAN JOHNS [id number] (Continued) Procedure Result ANTIMICROBIAL SUSCEPTIBILITY Preliminary (continued) CEFUROXIME <=4 S CEFTAZIDIME/AVIBACTAM <=4 S ERTAPENEM <=0.5 S GENTAMICIN <=2 S LEVOFLOXACIN <=0.5 S MEROPENEM <=1 S PIPERACILLIN/TAZOBACTAM <=8 S TRIMETHOPRIM/SULFAMETHOXAZOLE <=0.5/9.5 S TETRACYCLINE <=4 S TOBRAMYCIN <=2 S Unless otherwise specified, Testing Performed by: [address] [address] For Inquires, the Physician may contact the Microbiology department at [phone] ESCHERICHIA COLI ENTEROCOCCUS FAECALIS BACTEROIDES THETAIOTAOMICRON G PARVIMONAS [place] Objective: Assessment: 1. Ruptured appendix. Status post surgery laparoscopically assisted right colectomy September 28 cultures polymicrobial as above Intra-abdominal abscess status post IR drainage 10/02 Cultures positive for E. coli and Maylin glabrata 2. Leukocytosis, improving though slowly 3. Diabetes mellitus. 4. Hypertension. 5. Gastroesophageal reflux disease. 6. Chronic back problem. 7. Right upper lid stye 8. Thrombocytosis platelets greater than 900, likely reactive Plan: Plan of Care Continue Zosyn ,micafungin Local eye care including warm compresses Neomycin polymyxin hydrocortisone eye ointment instead of tobramycin drops per patient request Consult hematology for thrombocytosis Monitor labs and cultures Continue supportive care ALLEN MOORE MD Oct 07, 2021 11:15
--- NOTE | 2021-10-07 12:53 | EKG ---
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
--- NOTE | 2021-10-07 13:06 | PDOC2 ---
CONSULT Date of Consult Date of Consult DATE: 10/07/21 TIME: 12:51 Reason for Consult Reason for Consult: Thrombocytosis Referring Physician Referring Physician: Dr. Bryan Identification/Chief Complaint Chief Complaint Abdominal pain Source Source: Chart review History of Present Illness Reason for Visit: Poonam Ridley is a 51-year-old female who has been admitted to the hospital for perforated appendicitis. Patient was hospitalized at [facility] earlier this month with abdominal pain with was found to have appendicitis. She was dismissed home on antibiotics with plan to pursue elective appendectomy in 6 weeks. She was readmitted to [facility] on 09/28/2021 after she was seen in the office and found to have persistent and worsening abdominal pain as well as leukocytosis. On 09/28/2021, Dr. Nguyen performed a right hemicolectomy due to perforated appendix. Postoperative course has been compli cated by continued sepsis with presence of gas containing fluid collection indicating pericolic abscess. CT-guided abscess drainage showed E. coli and Maylin glabrata. She has been seen by infectious disease service and is currently on antibiotic therapy. Antimicrobial coverage has been expanded to include antifungal coverage CBC obtained during her prior hospitalization on 09/18/2021 showed normal WBC count, mild normocytic anemia and normal platelet count. Labs during current hospitalization have shown gradually progressing neutrophilic leukocytosis as well as associated thrombocytosis and blood loss anemia secondary to surgery. Hematology consultation has been requested for further evaluation of thrombocytosis. Past Medical History Cardiovascular: HTN Endocrine: Diabetes Past Surgical History Past Surgical History: Cholecystectomy, Other Family History Family History: Diabetes, Hypertension Social History ALCOHOL: social Drugs: None Current Medications Current Medications Current Medications Fentanyl Citrate (Fentanyl 2ml Vial) 25 mcg PRN Q5MIN PRN IVP MILD PAIN 1-3; Start 09/28/21 at 06:00; Stop 09/29/21 at 05:59; Status DC Fentanyl Citrate (Fentanyl 2ml Vial) 50 mcg PRN Q5MIN PRN IVP MODERATE PAIN 4-6 Last administered on 09/28/21at 13:11; Start 09/28/21 at 06:00; Stop 09/29/21 at 05:59; Status DC Morphine Sulfate (Morphine Sulfate) 1 mg PRN Q10MIN PRN IVP SEVERE PAIN 7-10 Last administered on 09/28/21at 14:34; Start 09/28/21 at 06:00; Stop 09/29/21 at 05:59; Status DC Ringer's Solution 1,000 ml @ 30 mls/hr Q24H IV Last administered on 09/28/21at 07:58; Start 09/28/21 at 06:00; Stop 09/28/21 at 17:59; Status DC Hydromorphone HCl (Dilaudid) 0.5 mg PRN Q10MIN PRN IVP SEVERE PAIN 7-10, 2nd CHOICE Last administered on 09/28/21at 14:09; Start 09/28/21 at 06:00; Stop 09/29/21 at 05:59; Status DC Prochlorperazine Edisylate (Compazine) 5 mg PACU PRN PRN IVP NAUSEA, MRX1 Last administered on 09/28/21at 13:09; Start 09/28/21 at 06:00; Stop 09/29/21 at 05:59; Status DC Cefoxitin Sodium (Mefoxin) 2 gm PREOP 1X ONCE IVP ; Start 09/28/21 at 06:00; Stop 09/28/21 at 06:01; Status DC Bupivacaine HCl/ Epinephrine Bitart (Sensorcain-Epi 0.5% Kit) 30 ml STK-MED ONCE .ROUTE Last administered on 09/28/21at 09:34; Start 09/28/21 at 07:19; Stop 09/28/21 at 07:20; Status DC Propofol (Diprivan) 200 mg STK-MED ONCE IV ; Start 09/28/21 at 08:28; Stop 09/28/21 at 08:28; Status DC Ketorolac Tromethamine (Toradol 30mg Vial) 30 mg STK-MED ONCE .ROUTE ; Start 09/28/21 at 08:28; Stop 09/28/21 at 08:28; Status DC Lidocaine HCl (Lidocaine Pf 2% Vial) 5 ml STK-MED ONCE .ROUTE ; Start 09/28/21 at 08:28; Stop 09/28/21 at 08:28; Status DC Ondansetron HCl (Zofran) 4 mg STK-MED ONCE .ROUTE ; Start 09/28/21 at 08:28; Stop 09/28/21 at 08:28; Status DC Dexamethasone Sodium Phosphate (Decadron) 4 mg STK-MED ONCE .ROUTE ; Start 09/28/21 at 08:28; Stop 09/28/21 at 08:29; Status DC Neostigmine Methylsulfate (Bloxiverz) 10 mg STK-MED ONCE .ROUTE ; Start 09/28/21 at 08:29; Stop 09/28/21 at 08:29; Status DC Rocuronium [place] (Zemuron) 50 mg STK-MED ONCE .ROUTE ; Start 09/28/21 at 08:29; Stop 09/28/21 at 08:29; Status DC Fentanyl Citrate (Fentanyl 2ml Vial) 100 mcg STK-MED ONCE .ROUTE ; Start 09/28/21 at 08:29; Stop 09/28/21 at 08:29; Status DC Midazolam HCl (Versed) 2 mg STK-MED ONCE .ROUTE ; Start 09/28/21 at 08:29; Stop 09/28/21 at 08:30; Status DC Glycopyrrolate (Robinul) 1 mg STK-MED ONCE .ROUTE ; Start 09/28/21 at 08:29; Stop 09/28/21 at 08:30; Status DC Esmolol HCl (Brevibloc) 100 mg STK-MED ONCE IVP ; Start 09/28/21 at 09:48; Stop 09/28/21 at 09:48; Status DC Fentanyl Citrate (Fentanyl 2ml Vial) 100 mcg STK-MED ONCE .ROUTE ; Start 1 11/29/20 at 09:48; Stop 09/28/21 at 09:49; Status DC Rocuronium [place] (Zemuron) 50 mg STK-MED ONCE .ROUTE ; Start 09/28/21 at 10:22; Stop 09/28/21 at 10:23; Status DC Methylene Blue (Provayblue) 10 ml STK-MED ONCE .ROUTE ; Start 09/28/21 at 10:45; Stop 09/28/21 at 10:45; Status DC Cellulose (Surgicel Hemostat 4x8) 1 each STK-MED ONCE .ROUTE Last administered on 09/28/21at 11:36; Start 09/28/21 at 11:22; Stop 09/28/21 at 11:22; Status DC Cellulose (Surgicel Hemostat 4x8) 1 each STK-MED ONCE .ROUTE Last administered on 09/28/21at 11:36; Start 09/28/21 at 11:28; Stop 09/28/21 at 11:28; Status DC Cellulose (Surgicel Hemostat 4x8) 1 each STK-MED ONCE TP Last administered on 09/28/21at 11:41; Start 09/28/21 at 11:41; Stop 09/28/21 at 11:46; Status DC Cellulose (Surgicel Hemostat 4x8) 1 each STK-MED ONCE .ROUTE ; Start 09/28/21 at 12:15; Stop 09/28/21 at 12:15; Status DC Fentanyl Citrate (Fentanyl 2ml Vial) 25 mcg PRN Q5MIN PRN IVP MILD PAIN 1-3; Start 09/28/21 at 12:30; Stop 09/29/21 at 11:06; Status DC Fentanyl Citrate (Fentanyl 2ml Vial) 50 mcg PRN Q5MIN PRN IVP MODERATE PAIN 4- 6; Start 09/28/21 at 12:30; Stop 09/29/21 at 11:06; Status DC Morphine Sulfate (Morphine Sulfate) 1 mg PRN Q10MIN PRN IVP SEVERE PAIN 7-10; Start 09/28/21 at 12:30; Stop 09/29/21 at 11:06; Status DC Ringer's Solution 1,000 ml @ 30 mls/hr Q24H IV ; Start 09/28/21 at 12:30; Stop 09/29/21 at 00:29; Status DC Hydromorphone HCl (Dilaudid) 0.5 mg PRN Q10MIN PRN IVP SEVERE PAIN 7-10, 2nd CHOICE; Start 09/28/21 at 12:30; Stop 09/29/21 at 11:07; Status DC Prochlorperazine Edisylate (Compazine) 5 mg PACU PRN PRN IVP NAUSEA, MRX1; S tart 09/28/21 at 12:30; Stop 09/29/21 at 11:07; Status DC Diphenhydramine HCl (Benadryl) 50 mg STK-MED ONCE .ROUTE ; Start 09/28/21 at 12:26; Stop 09/28/21 at 12:27; Status DC Cefoxitin Sodium (Mefoxin) 1 gm STK-MED ONCE IVP ; Start 09/28/21 at 12:33; Stop 09/28/21 at 12:33; Status DC Cefoxitin Sodium (Mefoxin) 1 gm 1X ONCE IVP Last administered on 09/28/21at 13:09; Start 09/28/21 at 12:45; Stop 09/28/21 at 12:46; Status DC Enoxaparin Sodium (Lovenox 40mg Syringe) 40 mg Q24H SQ Last administered on 09/30/21at 08:11; Start 09/29/21 at 09:00; Stop 10/02/21 at 10:29; Status DC Sodium Chloride (Normal Saline Flush) 3 ml QSHIFT PRN IV AFTER MEDS AND BLOOD DRAWS; Start 09/28/21 at 13:00 Ringer's Solution 1,000 ml @ 30 mls/hr Q24H IV Last administered on 10/05/21at 23:34; Start 09/28/21 at 14:00 Naloxone HCl (Narcan) 0.4 mg PRN Q2MIN PRN IV SEE INSTRUCTIONS; Start 09/28/21 at 13:00; Stop 09/28/21 at 16:49; Status DC Sodium Chloride 1,000 ml @ 25 mls/hr Q24H IV ; Start 09/28/21 at 13:00; Stop 09/28/21 at 16:49; Status DC Morphine Sulfate 30 ml @ 0 mls/hr CONT PRN PRN IV PER PROTOCOL; Start 09/28/21 at 13:00; Stop 09/28/21 at 16:49; Status DC Ondansetron HCl (Zofran) 4 mg PRN Q6HRS PRN IVP NAUESA, 1ST CHOICE Last administered on 10/02/21at 17:19; Start 09/28/21 at 13:00 Piperacillin Sod/ Tazobactam Sod 3.375 gm/Sodium Chloride 50 ml @ 100 mls/hr Q6HRS IV Last administered on 10/07/21at 05:31; Start 09/28/21 at 18:00 Cellulose (Surgicel Hemostat 4x8) 1 each STK-MED ONCE TP Last administered on 09/28/21at 12:15; Start 09/28/21 at 12:15; Stop 09/28/21 at 13:04; Status DC Fentanyl Citrate (Fentanyl 2ml Vial) 100 mcg STK-MED ONCE .ROUTE ; Start 09/28/21 at 13:07; Stop 09/28/21 at 13:07; Status DC Hydromorphone HCl (Dilaudid) 2 mg STK-MED ONCE .ROUTE ; Start 09/28/21 at 13:26; Stop 09/28/21 at 13:26; Status DC Fentanyl Citrate 30 ml @ 0 mls/hr CONT PRN PRN IV PER PROTOCOL Last administered on 09/28/21at 17:44; Start 09/28/21 at 16:45; Stop 09/29/21 at 01:43; Status DC Naloxone HCl (Narcan) 0.4 mg PRN Q2MIN PRN IV SEE INSTRUCTIONS; Start 09/28/21 at 16:45; Stop 09/29/21 at 11:08; Status DC Sodium Chloride 1,000 ml @ 25 mls/hr Q24H IV ; Start 09/28/21 at 16:45; Stop 09/29/21 at 12:10; Status DC Naloxone HCl (Narcan) 0.4 mg PRN Q2MIN PRN IV SEE INSTRUCTIONS; Start 09/29/21 at 01:15; Stop 10/04/21 at 09:39; Status DC Sodium Chloride 1,000 ml @ 25 mls/hr Q24H IV Last administered on 09/30/21at 17:17; Start 09/29/21 at 01:15; Stop 10/04/21 at 09:39; Status DC Hydromorphone HCl 30 ml @ 0 mls/hr CONT PRN PRN IV PER PROTOCOL Last administered on 10/03/21at 10:42; Start 09/29/21 at 01:15; Stop 10/04/21 at 09:39; Status DC Diphenhydramine HCl (Benadryl) 12.5 mg 1X ONCE IVP Last administered on 09/29/21at 01:38; Start 09/29/21 at 01:15; Stop 09/29/21 at 01:16; Status DC Diphenhydramine HCl (Benadryl) 25 mg PRN Q6HRS PRN IVP ITCHING Last ad ministered on 10/01/21at 23:17; Start 09/29/21 at 12:15 Glycerin/ Hypromellose/ Polyethylene (Artificial Tears) 1 drop PRN Q15MIN PRN OU DRY EYE Last administered on 09/29/21at 14:19; Start 09/29/21 at 13:45 Diphenhydramine HCl (Benadryl) 25 mg PRN Q6HRS PRN IVP ITCHING; Start 09/29/21 at 18:00; Status UNV Tobramycin Sulfate (Tobrex Ophth Soln) 1 drop 1X ONCE OU Last administered on 09/30/21at 15:30; Start 09/30/21 at 15:30; Stop 09/30/21 at 15:34; Status DC Tobramycin Sulfate (Tobrex Ophth Soln) 1 drop TID OD Last administered on 10/07/21at 09:41; Start 10/01/21 at 14:00; Stop 10/07/21 at 11:11; Status DC Pantoprazole Sodium (Protonix) 40 mg DAILYAC PO Last administered on 10/07/21at 05:32; Start 10/02/21 at 07:30 Iohexol (Omnipaque 300 Mg/ml) 75 ml 1X ONCE IV ; Start 10/02/21 at 09:00; Stop 10/02/21 at 09:01; Status DC Iohexol (Omnipaque 240 Mg/ml) 50 ml 1X ONCE PO ; Start 10/02/21 at 09:00; Stop 10/02/21 at 09:01; Status DC Info (CONTRAST GIVEN -- Rx MONITORING) 1 each PRN DAILY PRN MC SEE COMMENTS; Start 10/02/21 at 09:00; Stop 10/04/21 at 08:59; Status DC Amino Acids/ Electrolytes/ Dextrose 1,000 ml @ 80 mls/hr [id number] IV Last administered on 10/03/21at 21:41; Start 10/02/21 at 14:00; Stop 10/04/21 at 10:07; Status DC Lidocaine HCl (Buffered Lidocaine 1%) 3 ml STK-MED ONCE .ROUTE ; Start 10/02/21 at 14:52; Stop 10/02/21 at 14:52; Status DC Midazolam HCl (Versed) 2 mg STK-MED ONCE .ROUTE ; Start 10/02/21 at 15:00; Stop 10/02/21 at 15:01; Status DC Fentanyl Citrate (Fentanyl 2ml Vial) 100 mcg STK-MED ONCE .ROUTE ; Start 10/02/21 at 15:00; Stop 10/02/21 at 15:01; Status DC Ondansetron HCl (Zofran) 4 mg STK-MED ONCE .ROUTE ; Start 10/02/21 at 15:00; Stop 10/02/21 at 15:01; Status DC Lidocaine HCl (Buffered Lidocaine 1%) 3 ml 1X ONCE IJ Last administered on 10/02/21at 15:15; Start 10/02/21 at 15:15; Stop 10/02/21 at 15:16; Status DC Midazolam HCl (Versed) 2 mg 1X ONCE IV Last administered on 10/02/21at 15:15; Start 10/02/21 at 15:15; Stop 10/02/21 at 15:16; Status DC Fentanyl Citrate (Fentanyl 2ml Vial) 100 mcg 1X ONCE IV Last administered on 10/02/21at 15:15; Start 10/02/21 at 15:15; Stop 10/02/21 at 15:16; Status DC Ondansetron HCl (Zofran) 4 mg 1X ONCE IVP Last administered on 10/02/21at 15:15; Start 10/02/21 at 15:15; Stop 10/02/21 at 15:16; Status DC Oxycodone/ Acetaminophen (Percocet 5/325) 1 tab PRN Q4HRS PRN PO PAIN; Start 10/04/21 at 09:45 Oxycodone/ Acetaminophen (Percocet 5/325) 2 tab PRN Q4HRS PRN PO PAIN Last administered on 10/07/21at 09:42; Start 10/04/21 at 09:45 Hydromorphone HCl (Dilaudid) 1 mg PRN Q4HRS PRN PO BREAKTHRU PAIN Last administered on 10/05/21at 20:59; Start 10/04/21 at 09:45 Lactobacillus Rhamnosus (Culturelle) 1 cap BID PO Last administered on 10/07/21at 09:41; Start 10/04/21 at 21:00 Micafungin Sodium 100 mg/Dextrose 100 ml @ 100 mls/hr Q24H IV Last administered on 10/07/21at 09:41; Start 10/06/21 at 09:00 Neomycin/ Polymyxin/Bacitr/ Hydrocort (Cortisporin Ophth) 1 timo BID OD ; Start 10/07/21 at 12:00 Aspirin (Aspirin Chewable) 81 mg DAILYWBKFT PO ; Start 10/07/21 at 12:30 Active Scripts Active Augmentin 875-125 Tablet (Amoxicillin/Potassium Clav) 1 Each Tablet 1 Tab PO BID 10 Days Reported Prilosec Otc (Omeprazole Magnesium) 20 Mg Tablet.dr 20 Mg PO DAILY Percocet 5-325 Mg Tablet (Oxycodone/Acetaminophen) 1 Each Tablet 1 Tab PO PRN Q4-6HRS PRN Xanax (Alprazolam) 0.25 Mg Tablet 1 Tab PO HS PRN Probiotic (Lactobacillus Combo No.10) 1 Each Capsule 1 Tab PO DAILY 30 Days Calcium Citrate 250 Mg Tablet 1 Tab PO DAILY 30 Days Multiple Vitamins (Multivitamin) 1 Each Tablet 1 Tab PO DAILY 30 Days Lisinopril 10 Mg Tablet 20 Mg PO DAILY Allergies Allergies: Coded Allergies: No Known Drug Allergies (Unverified , 09/28/21) ROS Review of System Negative unless stated otherwise in interval history Physical Exam General: Alert, Oriented X3 HEENT: Atraumatic Lungs: Clear to auscultation Heart: Regular rate Abdomen: Other (Drain noted) MUSCULOSKELETAL: No swelling Vitals VITALS Vital Signs Date Time Temp Pulse Resp B/P (MAP) Pulse Ox O2 Delivery O2 Flow Rate FiO2 10/07/21 11:00 97.9 63 19 142/68 (92) 96 Room Air 97.9 Labs Labs Laboratory Tests Test 10/05/21 14:00 10/07/21 08:40 White Blood Count 15.3 x10^3/uL (4.0-11.0) 14.0 x10^3/uL (4.0-11.0) Red Blood Count 2.72 x10^6/uL (3.50-5.40) 2.77 x10^6/uL (3.50-5.40) Hemoglobin 7.7 g/dL (12.0-15.5) 8.0 g/dL (12.0-15.5) Hematocrit 23.8 % (36.0-47.0) 24.2 % (36.0-47.0) Mean Corpuscular Volume 88 fL (79-100) 87 fL (79-100) Mean Corpuscular Hemoglobin 28 pg (25-35) 29 pg (25-35) Mean Corpuscular Hemoglobin Concent 32 g/dL (31-37) 33 g/dL (31-37) Red Cell Distribution Width 16.6 % (11.5-14.5) 17.1 % (11.5-14.5) Platelet Count 895 x10^3/uL (140-400) 992 x10^3/uL (140-400) Neutrophils (%) (Auto) 78 % (31-73) 75 % (31-73) Lymphocytes (%) (Auto) 12 % (24-48) 14 % (24-48) Monocytes (%) (Auto) 7 % (0-9) 7 % (0-9) Eosinophils (%) (Auto) 2 % (0-3) 3 % (0-3) Basophils (%) (Auto) 0 % (0-3) 1 % (0-3) Neutrophils # (Auto) 11.9 x10^3/uL (1.8-7.7) 10.6 x10^3/uL (1.8-7.7) Lymphocytes # (Auto) 1.9 x10^3/uL (1.0-4.8) 2.0 x10^3/uL (1.0-4.8) Monocytes # (Auto) 1.1 x10^3/uL (0.0-1.1) 1.0 x10^3/uL (0.0-1.1) Eosinophils # (Auto) 0.4 x10^3/uL (0.0-0.7) 0.3 x10^3/uL (0.0-0.7) Basophils # (Auto) 0.1 x10^3/uL (0.0-0.2) 0.1 x10^3/uL (0.0-0.2) Sodium Level 137 mmol/L (136-145) Potassium Level 3.9 mmol/L (3.5-5.1) Chloride Level 101 mmol/L (98-107) Carbon Dioxide Level 29 mmol/L (21-32) Anion Gap 7 (6-14) Blood Urea Nitrogen 6 mg/dL (7-20) Creatinine 0.6 mg/dL (0.6-1.0) Estimated GFR (Cockcroft-Gault) 104.6 BUN/Creatinine Ratio 10 (6-20) Glucose Level 89 mg/dL (70-99) Calcium Level 8.6 mg/dL (8.5-10.1) Total Bilirubin 0.4 mg/dL (0.2-1.0) Aspartate Amino Transf (AST/SGOT) 27 U/L (15-37) Alanine Aminotransferase (ALT/SGPT) 38 U/L (14-59) Alkaline Phosphatase 103 U/L (46-116) Total Protein 6.6 g/dL (6.4-8.2) Albumin 2.0 g/dL (3.4-5.0) Albumin/Globulin Ratio 0.4 (1.0-1.7) Laboratory Tests Test 10/07/21 08:40 White Blood Count 14.0 x10^3/uL (4.0-11.0) Red Blood Count 2.77 x10^6/uL (3.50-5.40) Hemoglobin 8.0 g/dL (12.0-15.5) Hematocrit 24.2 % (36.0-47.0) Mean Corpuscular Volume 87 fL (79-100) Mean Corpuscular Hemoglobin 29 pg (25-35) Mean Corpuscular Hemoglobin Concent 33 g/dL (31-37) Red Cell Distribution Width 17.1 % (11.5-14.5) Platelet Count 992 x10^3/uL (140-400) Neutrophils (%) (Auto) 75 % (31-73) Lymphocytes (%) (Auto) 14 % (24-48) Monocytes (%) (Auto) 7 % (0-9) Eosinophils (%) (Auto) 3 % (0-3) Basophils (%) (Auto) 1 % (0-3) Neutrophils # (Auto) 10.6 x10^3/uL (1.8-7.7) Lymphocytes # (Auto) 2.0 x10^3/uL (1.0-4.8) Monocytes # (Auto) 1.0 x10^3/uL (0.0-1.1) Eosinophils # (Auto) 0.3 x10^3/uL (0.0-0.7) Basophils # (Auto) 0.1 x10^3/uL (0.0-0.2) Sodium Level 137 mmol/L (136-145) Potassium Level 3.9 mmol/L (3.5-5.1) Chloride Level 101 mmol/L (98-107) Carbon Dioxide Level 29 mmol/L (21-32) Anion Gap 7 (6-14) Blood Urea Nitrogen 6 mg/dL (7-20) Creatinine 0.6 mg/dL (0.6-1.0) Estimated GFR (Cockcroft-Gault) 104.6 BUN/Creatinine Ratio 10 (6-20) Glucose Level 89 mg/dL (70-99) Calcium Level 8.6 mg/dL (8.5-10.1) Total Bilirubin 0.4 mg/dL (0.2-1.0) Aspartate Amino Transf (AST/SGOT) 27 U/L (15-37) Alanine Aminotransferase (ALT/SGPT) 38 U/L (14-59) Alkaline Phosphatase 103 U/L (46-116) Total Protein 6.6 g/dL (6.4-8.2) Albumin 2.0 g/dL (3.4-5.0) Albumin/Globulin Ratio 0.4 (1.0-1.7) Assessment/Plan Assessment/Plan Assessment: Perforated acute appendicitis with intra-abdominal abscess Neutrophilic leukocytosis Thrombocytosis, reactive Acute blood loss anemia Recommendations: -Reviewed CBCs from recent hospitalization as well as current hospital stay. The gradual increase in platelet count has been in parallel with patient's neutrophilic leukocytosis as well as abdominal abscess. -Baseline CBC did not show thrombocytosis. Would therefore not plan on any additional evaluation for thrombocytosis at this time -Continue supportive care for abdominal abscess and antibiotics per ID -Continue to monitor CBC daily. Anticipate improvement and eventual resolution of thrombocytosis with improvement in clinical course -Would plan on additional testing for essential thrombocytosis if thrombocytopenia persists weeks after resolution of current acute illness Jay Palma MD Medical Oncology/Hematology Ph: [phone] RUTH PALMA MD Oct 07, 2021 13:06
[2021-10-07] MEDS: ASPIRIN CHEWABLE 81 MG TABLET. PO SCH (13:25)
[2021-10-07] MEDS: NEOMYCIN/BACI/POLY/HC OPHTH OINTMENT 3.5GM TUBE. OD SCH ×2 (13:27→20:31)
--- NOTE | 2021-10-07 14:45 | NUR ---
Wound/Ostomy Care Wound Type/Assessment: Wound care follow up for posterior thigh blister. Blister is resolved. Cleansed area and assessed wound Treatment Recommendations/Plan: Cleansed area and painted with skin prep. Pt requested foam dressing for protection. Education provided: PU prevention and WC POC Offloading surface/device: self turn Recommended Referrals/Tests: na Discharge Recommendations for dressings: na, wound healed. WC signing off
[2021-10-07 15:00] VITALS: BP 135/78
--- NOTE | 2021-10-07 16:01 | PDOC ---
SURGICAL PROGRESS NOTE DATE: 10/07/21 TIME: 15:59 Subjective Pt feels better overall, cruz PO well, passing stools, pain at drain site Vital Signs Vital Signs Date Time Temp Pulse Resp B/P (MAP) Pulse Ox O2 Delivery O2 Flow Rate FiO2 10/07/21 15:00 97.9 64 18 135/78 (97) 96 Room Air 97.9 I&O Intake and Output 10/07/21 06:59 Intake Total 900 ml Output Total 620 ml Balance 280 ml Intake Oral 900 ml Output Urine Total 600 ml Drainage Total 20 ml # Voids 7 General: Alert, Oriented X3, Cooperative, No acute distress Abdomen: Soft, No tenderness, Other (dressing intact, TANIA serosang) Labs Laboratory Tests Test 10/07/21 08:40 White Blood Count 14.0 x10^3/uL (4.0-11.0) Red Blood Count 2.77 x10^6/uL (3.50-5.40) Hemoglobin 8.0 g/dL (12.0-15.5) Hematocrit 24.2 % (36.0-47.0) Mean Corpuscular Volume 87 fL (79-100) Mean Corpuscular Hemoglobin 29 pg (25-35) Mean Corpuscular Hemoglobin Concent 33 g/dL (31-37) Red Cell Distribution Width 17.1 % (11.5-14.5) Platelet Count 992 x10^3/uL (140-400) Neutrophils (%) (Auto) 75 % (31-73) Lymphocytes (%) (Auto) 14 % (24-48) Monocytes (%) (Auto) 7 % (0-9) Eosinophils (%) (Auto) 3 % (0-3) Basophils (%) (Auto) 1 % (0-3) Neutrophils # (Auto) 10.6 x10^3/uL (1.8-7.7) Lymphocytes # (Auto) 2.0 x10^3/uL (1.0-4.8) Monocytes # (Auto) 1.0 x10^3/uL (0.0-1.1) Eosinophils # (Auto) 0.3 x10^3/uL (0.0-0.7) Basophils # (Auto) 0.1 x10^3/uL (0.0-0.2) Sodium Level 137 mmol/L (136-145) Potassium Level 3.9 mmol/L (3.5-5.1) Chloride Level 101 mmol/L (98-107) Carbon Dioxide Level 29 mmol/L (21-32) Anion Gap 7 (6-14) Blood Urea Nitrogen 6 mg/dL (7-20) Creatinine 0.6 mg/dL (0.6-1.0) Estimated GFR (Cockcroft-Gault) 104.6 BUN/Creatinine Ratio 10 (6-20) Glucose Level 89 mg/dL (70-99) Calcium Level 8.6 mg/dL (8.5-10.1) Total Bilirubin 0.4 mg/dL (0.2-1.0) Aspartate Amino Transf (AST/SGOT) 27 U/L (15-37) Alanine Aminotransferase (ALT/SGPT) 38 U/L (14-59) Alkaline Phosphatase 103 U/L (46-116) Total Protein 6.6 g/dL (6.4-8.2) Albumin 2.0 g/dL (3.4-5.0) Albumin/Globulin Ratio 0.4 (1.0-1.7) Laboratory Tests Test 10/07/21 08:40 White Blood Count 14.0 x10^3/uL (4.0-11.0) Red Blood Count 2.77 x10^6/uL (3.50-5.40) Hemoglobin 8.0 g/dL (12.0-15.5) Hematocrit 24.2 % (36.0-47.0) Mean Corpuscular Volume 87 fL (79-100) Mean Corpuscular Hemoglobin 29 pg (25-35) Mean Corpuscular Hemoglobin Concent 33 g/dL (31-37) Red Cell Distribution Width 17.1 % (11.5-14.5) Platelet Count 992 x10^3/uL (140-400) Neutrophils (%) (Auto) 75 % (31-73) Lymphocytes (%) (Auto) 14 % (24-48) Monocytes (%) (Auto) 7 % (0-9) Eosinophils (%) (Auto) 3 % (0-3) Basophils (%) (Auto) 1 % (0-3) Neutrophils # (Auto) 10.6 x10^3/uL (1.8-7.7) Lymphocytes # (Auto) 2.0 x10^3/uL (1.0-4.8) Monocytes # (Auto) 1.0 x10^3/uL (0.0-1.1) Eosinophils # (Auto) 0.3 x10^3/uL (0.0-0.7) Basophils # (Auto) 0.1 x10^3/uL (0.0-0.2) Sodium Level 137 mmol/L (136-145) Potassium Level 3.9 mmol/L (3.5-5.1) Chloride Level 101 mmol/L (98-107) Carbon Dioxide Level 29 mmol/L (21-32) Anion Gap 7 (6-14) Blood Urea Nitrogen 6 mg/dL (7-20) Creatinine 0.6 mg/dL (0.6-1.0) Estimated GFR (Cockcroft-Gault) 104.6 BUN/Creatinine Ratio 10 (6-20) Glucose Level 89 mg/dL (70-99) Calcium Level 8.6 mg/dL (8.5-10.1) Total Bilirubin 0.4 mg/dL (0.2-1.0) Aspartate Amino Transf (AST/SGOT) 27 U/L (15-37) Alanine Aminotransferase (ALT/SGPT) 38 U/L (14-59) Alkaline Phosphatase 103 U/L (46-116) Total Protein 6.6 g/dL (6.4-8.2) Albumin 2.0 g/dL (3.4-5.0) Albumin/Globulin Ratio 0.4 (1.0-1.7) Assessment/Plan s/p right colon appears to be improving appreciate hematology and ID involvement cont abx and ADAT would like to see WBC improved prior to d/c Justicifation of Admission Dx: Justifications for Admission: Justification of Admission Dx: Yes XAVIER HANNON MD Oct 07, 2021 16:00
[2021-10-07] MEDS: IV RINGERS,LACTATED 1000ML 1,000 ML IV SCH (17:36)
[2021-10-07 19:45] VITALS: BP 144/69
[2021-10-07 23:30] VITALS: BP 144/76
[2021-10-08] MEDS: PIPERACILLIN/TAZOBACTAM 3.375 GM in IV NORMAL SALINE 50ML 50 ML IV SCH ×4 (01:31→18:06)
[2021-10-08] MEDS: oxyCODONE/APAP 5/325 1 TAB TABLET PO PRN ×6 (01:34→22:04)
[2021-10-08 03:35] VITALS: BP 138/78
[2021-10-08 07:00] VITALS: BP 153/79
--- NOTE | 2021-10-08 08:11 | PDOC ---
Infectious Disease Note Subjective: Subjective Patient c/o abdominal pain Right eye swelling and irritation is improving Vital Signs: Vital Signs Vital Signs Date Time Temp Pulse Resp B/P (MAP) Pulse Ox O2 Delivery O2 Flow Rate FiO2 10/08/21 07:59 Room Air 10/08/21 05:35 97 1.0 10/08/21 03:35 98.1 74 138/78 (98) 98.1 10/07/21 15:00 18 Physical Exam: PHYSICAL EXAM GENERAL: Alert, oriented female, not in distress. HEENT: Both pupils are round and reacting. No conjunctival lesion. No lesion in the mouth. Right upper eyelid irritation, mild redness present NECK: Supple. No JVP, no lymphadenopathy. LUNGS: Clear. HEART: S1, S2, regular. ABDOMEN: Soft. Mild diffuse tenderness present. No rebound or guarding. EXTREMITIES: No edema or cyanosis. SKIN: Unremarkable. NEUROLOGIC: The patient is alert, awake, and appropriate. No focal neurologic deficit. Medications: Inpatient Meds: Medications reviewed. Labs: Lab Laboratory Tests Test 10/07/21 08:40 White Blood Count 14.0 x10^3/uL (4.0-11.0) Red Blood Count 2.77 x10^6/uL (3.50-5.40) Hemoglobin 8.0 g/dL (12.0-15.5) Hematocrit 24.2 % (36.0-47.0) Mean Corpuscular Volume 87 fL (79-100) Mean Corpuscular Hemoglobin 29 pg (25-35) Mean Corpuscular Hemoglobin Concent 33 g/dL (31-37) Red Cell Distribution Width 17.1 % (11.5-14.5) Platelet Count 992 x10^3/uL (140-400) Neutrophils (%) (Auto) 75 % (31-73) Lymphocytes (%) (Auto) 14 % (24-48) Monocytes (%) (Auto) 7 % (0-9) Eosinophils (%) (Auto) 3 % (0-3) Basophils (%) (Auto) 1 % (0-3) Neutrophils # (Auto) 10.6 x10^3/uL (1.8-7.7) Lymphocytes # (Auto) 2.0 x10^3/uL (1.0-4.8) Monocytes # (Auto) 1.0 x10^3/uL (0.0-1.1) Eosinophils # (Auto) 0.3 x10^3/uL (0.0-0.7) Basophils # (Auto) 0.1 x10^3/uL (0.0-0.2) Sodium Level 137 mmol/L (136-145) Potassium Level 3.9 mmol/L (3.5-5.1) Chloride Level 101 mmol/L (98-107) Carbon Dioxide Level 29 mmol/L (21-32) Anion Gap 7 (6-14) Blood Urea Nitrogen 6 mg/dL (7-20) Creatinine 0.6 mg/dL (0.6-1.0) Estimated GFR (Cockcroft-Gault) 104.6 BUN/Creatinine Ratio 10 (6-20) Glucose Level 89 mg/dL (70-99) Calcium Level 8.6 mg/dL (8.5-10.1) Total Bilirubin 0.4 mg/dL (0.2-1.0) Aspartate Amino Transf (AST/SGOT) 27 U/L (15-37) Alanine Aminotransferase (ALT/SGPT) 38 U/L (14-59) Alkaline Phosphatase 103 U/L (46-116) Total Protein 6.6 g/dL (6.4-8.2) Albumin 2.0 g/dL (3.4-5.0) Albumin/Globulin Ratio 0.4 (1.0-1.7) Micro ESCHERICHIA COLI MAYLIN GLABRATA ANTIMICROBIAL SUSCEPTIBILITY Preliminary Comment NEG ALYSSA 56 ESCHERICHIA COLI ANTIBIOTIC RESULT INTERPRETATION AMPICILLIN/SULBACTAM <=4/2 S AMIKACIN <=16 S AMPICILLIN <=8 S AMOXICILLIN/K CLAVULANATE <=8/4 S AZTREONAM <=4 S CEFTRIAXONE <=1 S CEFTAZIDIME <=1 S CEFOTAXIME <=2 S CEFOXITIN <=8 S CEFAZOLIN <=2 S CIPROFLOXACIN <=0.25 S CEFEPIME <=2 S RUN DATE: 10/05/21 [facility] *LIVE* PAGE 2 RUN TIME: 1148 Specimen Inquiry SPEC: [id number] PATIENT: REHAN JOHNS [id number] (Continued) - Procedure Result CONTINUED ON NEXT PAGE RUN DATE: 10/05/21 [facility] *LIVE* PAGE 3 RUN TIME: 1148 Specimen Inquiry SPEC: [id number] PATIENT: REHAN JOHNS [id number] (Continued) Procedure Result ANTIMICROBIAL SUSCEPTIBILITY Preliminary (continued) CEFUROXIME <=4 S CEFTAZIDIME/AVIBACTAM <=4 S ERTAPENEM <=0.5 S GENTAMICIN <=2 S LEVOFLOXACIN <=0.5 S MEROPENEM <=1 S PIPERACILLIN/TAZOBACTAM <=8 S TRIMETHOPRIM/SULFAMETHOXAZOLE <=0.5/9.5 S TETRACYCLINE <=4 S TOBRAMYCIN <=2 S Unless otherwise specified, Testing Performed by: [facility] [address] [place] [address] For Inquires, the Physician may contact the Microbiology department at [phone] ESCHERICHIA COLI ENTEROCOCCUS FAECALIS BACTEROIDES THETAIOTAOMICRON G PARVIMONAS [place] Objective: Assessment: 1. Ruptured appendix. Status post surgery laparoscopically assisted right colectomy September 28 cultures polymicrobial as above Intra-abdominal abscess status post IR drainage 10/02 Cultures positive for E. coli and Maylin glabrata 2. Leukocytosis, improving though slowly 3. Diabetes mellitus. 4. Hypertension. 5. Gastroesophageal reflux disease. 6. Chronic back problem. 7. Right upper lid stye 8. Thrombocytosis platelets greater than 900, likely reactive Plan: Plan of Care Continue Zosyn ,micafungin Local eye care including warm compresses eye ointment instead of tobramycin drops per patient request Hematology input noted Monitor labs and cultures Continue supportive care ALLEN MOORE MD Oct 08, 2021 08:11
--- NOTE | 2021-10-08 08:36 | PDOC ---
SURGICAL PROGRESS NOTE DATE: 10/08/21 TIME: 08:35 Subjective tolerating diet having stools pain mostly around drain site Vital Signs Vital Signs Date Time Temp Pulse Resp B/P (MAP) Pulse Ox O2 Delivery O2 Flow Rate FiO2 10/08/21 07:59 Room Air 10/08/21 07:00 98.0 71 18 153/79 (103) 93 98.0 10/08/21 05:35 1.0 I&O Intake and Output 10/08/21 07:00 Intake Total 540 ml Balance 540 ml Intake Oral 540 ml # Voids 5 General: Alert, Oriented X3, Cooperative Abdomen: Soft, Other (drain bloody drainage ) Labs Laboratory Tests Test 10/07/21 08:40 White Blood Count 14.0 x10^3/uL (4.0-11.0) Red Blood Count 2.77 x10^6/uL (3.50-5.40) Hemoglobin 8.0 g/dL (12.0-15.5) Hematocrit 24.2 % (36.0-47.0) Mean Corpuscular Volume 87 fL (79-100) Mean Corpuscular Hemoglobin 29 pg (25-35) Mean Corpuscular Hemoglobin Concent 33 g/dL (31-37) Red Cell Distribution Width 17.1 % (11.5-14.5) Platelet Count 992 x10^3/uL (140-400) Neutrophils (%) (Auto) 75 % (31-73) Lymphocytes (%) (Auto) 14 % (24-48) Monocytes (%) (Auto) 7 % (0-9) Eosinophils (%) (Auto) 3 % (0-3) Basophils (%) (Auto) 1 % (0-3) Neutrophils # (Auto) 10.6 x10^3/uL (1.8-7.7) Lymphocytes # (Auto) 2.0 x10^3/uL (1.0-4.8) Monocytes # (Auto) 1.0 x10^3/uL (0.0-1.1) Eosinophils # (Auto) 0.3 x10^3/uL (0.0-0.7) Basophils # (Auto) 0.1 x10^3/uL (0.0-0.2) Sodium Level 137 mmol/L (136-145) Potassium Level 3.9 mmol/L (3.5-5.1) Chloride Level 101 mmol/L (98-107) Carbon Dioxide Level 29 mmol/L (21-32) Anion Gap 7 (6-14) Blood Urea Nitrogen 6 mg/dL (7-20) Creatinine 0.6 mg/dL (0.6-1.0) Estimated GFR (Cockcroft-Gault) 104.6 BUN/Creatinine Ratio 10 (6-20) Glucose Level 89 mg/dL (70-99) Calcium Level 8.6 mg/dL (8.5-10.1) Total Bilirubin 0.4 mg/dL (0.2-1.0) Aspartate Amino Transf (AST/SGOT) 27 U/L (15-37) Alanine Aminotransferase (ALT/SGPT) 38 U/L (14-59) Alkaline Phosphatase 103 U/L (46-116) Total Protein 6.6 g/dL (6.4-8.2) Albumin 2.0 g/dL (3.4-5.0) Albumin/Globulin Ratio 0.4 (1.0-1.7) Laboratory Tests Test 10/07/21 08:40 White Blood Count 14.0 x10^3/uL (4.0-11.0) Red Blood Count 2.77 x10^6/uL (3.50-5.40) Hemoglobin 8.0 g/dL (12.0-15.5) Hematocrit 24.2 % (36.0-47.0) Mean Corpuscular Volume 87 fL (79-100) Mean Corpuscular Hemoglobin 29 pg (25-35) Mean Corpuscular Hemoglobin Concent 33 g/dL (31-37) Red Cell Distribution Width 17.1 % (11.5-14.5) Platelet Count 992 x10^3/uL (140-400) Neutrophils (%) (Auto) 75 % (31-73) Lymphocytes (%) (Auto) 14 % (24-48) Monocytes (%) (Auto) 7 % (0-9) Eosinophils (%) (Auto) 3 % (0-3) Basophils (%) (Auto) 1 % (0-3) Neutrophils # (Auto) 10.6 x10^3/uL (1.8-7.7) Lymphocytes # (Auto) 2.0 x10^3/uL (1.0-4.8) Monocytes # (Auto) 1.0 x10^3/uL (0.0-1.1) Eosinophils # (Auto) 0.3 x10^3/uL (0.0-0.7) Basophils # (Auto) 0.1 x10^3/uL (0.0-0.2) Sodium Level 137 mmol/L (136-145) Potassium Level 3.9 mmol/L (3.5-5.1) Chloride Level 101 mmol/L (98-107) Carbon Dioxide Level 29 mmol/L (21-32) Anion Gap 7 (6-14) Blood Urea Nitrogen 6 mg/dL (7-20) Creatinine 0.6 mg/dL (0.6-1.0) Estimated GFR (Cockcroft-Gault) 104.6 BUN/Creatinine Ratio 10 (6-20) Glucose Level 89 mg/dL (70-99) Calcium Level 8.6 mg/dL (8.5-10.1) Total Bilirubin 0.4 mg/dL (0.2-1.0) Aspartate Amino Transf (AST/SGOT) 27 U/L (15-37) Alanine Aminotransferase (ALT/SGPT) 38 U/L (14-59) Alkaline Phosphatase 103 U/L (46-116) Total Protein 6.6 g/dL (6.4-8.2) Albumin 2.0 g/dL (3.4-5.0) Albumin/Globulin Ratio 0.4 (1.0-1.7) Problem List cbc pending home soon Justicifation of Admission Dx: Justifications for Admission: Justification of Admission Dx: Yes VIRY BALLARD MACHINE WO[employer] SANDER Oct 08, 2021 08:36
[2021-10-08] MEDS: NEOMYCIN/BACI/POLY/HC OPHTH OINTMENT 3.5GM TUBE. OD SCH ×2 (09:00→21:00)
[2021-10-08] MEDS: LACTOBACILLUS RHAMNOSUS GG 1 CAPSULE. PO SCH ×2 (09:26→22:03)
[2021-10-08] MEDS: ASPIRIN CHEWABLE 81 MG TABLET. PO SCH (09:26)
[2021-10-08] MEDS: PANTOPRAZOLE 40 MG TABLET.DR. PO SCH (09:27)
[2021-10-08] MEDS: MICAFUNGIN 100 MG in IV DEXTROSE 5% 100ML 100 ML IV SCH (09:28)
[2021-10-08] MEDS: IV RINGERS,LACTATED 1000ML 1,000 ML IV SCH (10:00)
--- NOTE | 2021-10-08 10:07 | NUR ---
SW following. Discussed with RN, pt from home alone, room air, GI soft, ad vito. DC soon per Surgery. Pt still on IV abx, has drain in place. Wound care following. Pt will discharge home when medically stable. SW will continue to follow.
[2021-10-08 10:15] LABS: BASO # 0.1 x10^3/uL (0.0-0.2); BASO % 1 % (0-3); EOS # 0.3 x10^3/uL (0.0-0.7); EOS % 2 % (0-3); HEMATOCRIT 24.5 % (36.0-47.0); LYMPH # 2.1 x10^3/uL (1.0-4.8); LYMPH % 14 % (24-48); MEAN CORPUSCULAR HEMOGLOBIN 29 pg (25-35); MEAN CORPUSCULAR HGB CONC 33 g/dL (31-37); MEAN CORPUSCULAR VOLUME 88 fL (79-100); MONO # 0.9 x10^3/uL (0.0-1.1); MONO % 6 % (0-9); NEUT # 11.3 x10^3/uL (1.8-7.7); NEUT % 77 % (31-73); RED CELL DISTRIBUTION WIDTH 17.1 % (11.5-14.5); WHITE BLOOD COUNT 14.7 x10^3/uL (4.0-11.0)
[2021-10-08 10:33] LABS: PLATELET COUNT 982 x10^3/uL (140-400)
[2021-10-08 11:00] VITALS: BP 129/69
--- NOTE | 2021-10-08 14:57 | NUR ---
R lat TANIA drain flushed with 10cc NS.
[2021-10-08 15:00] VITALS: BP 143/71
[2021-10-08 19:00] VITALS: BP 130/70
[2021-10-08 23:00] VITALS: BP 157/80
[2021-10-09] MEDS: PIPERACILLIN/TAZOBACTAM 3.375 GM in IV NORMAL SALINE 50ML 50 ML IV SCH ×3 (00:26→11:03)
[2021-10-09] MEDS: oxyCODONE/APAP 5/325 1 TAB TABLET PO PRN ×4 (03:08→17:02)
[2021-10-09 04:30] VITALS: BP 147/85
[2021-10-09 07:30] VITALS: BP 134/79
[2021-10-09] MEDS: PANTOPRAZOLE 40 MG TABLET.DR. PO SCH (07:30)
[2021-10-09] MEDS: LACTOBACILLUS RHAMNOSUS GG 1 CAPSULE. PO SCH (07:30)
[2021-10-09] MEDS: ASPIRIN CHEWABLE 81 MG TABLET. PO SCH (07:31)
[2021-10-09] MEDS: MICAFUNGIN 100 MG in IV DEXTROSE 5% 100ML 100 ML IV SCH (07:32)
[2021-10-09] MEDS: NEOMYCIN/BACI/POLY/HC OPHTH OINTMENT 3.5GM TUBE. OD SCH (07:32)
--- NOTE | 2021-10-09 10:29 | PDOC ---
Infectious Disease Note Subjective: Subjective Patient c/o abdominal pain mainly around the drain site Right eye swelling and irritation is improving Vital Signs: Vital Signs Vital Signs Date Time Temp Pulse Resp B/P (MAP) Pulse Ox O2 Delivery O2 Flow Rate FiO2 10/09/21 07:40 Room Air 10/09/21 07:30 98.0 70 18 134/79 (97) 95 98.0 Physical Exam: PHYSICAL EXAM GENERAL: Alert, oriented female, not in distress. HEENT: Both pupils are round and reacting. No conjunctival lesion. No lesion in the mouth. Right upper eyelid irritation, mild redness present NECK: Supple. No JVP, no lymphadenopathy. LUNGS: Clear. HEART: S1, S2, regular. ABDOMEN: Soft. Mild diffuse tenderness present. No rebound or guarding. EXTREMITIES: No edema or cyanosis. SKIN: Unremarkable. NEUROLOGIC: The patient is alert, awake, and appropriate. No focal neurologic deficit. Medications: Inpatient Meds: Medications reviewed. Labs: Micro ESCHERICHIA COLI MAYLIN GLABRATA ANTIMICROBIAL SUSCEPTIBILITY Preliminary Comment NEG ALYSSA 56 ESCHERICHIA COLI ANTIBIOTIC RESULT INTERPRETATION AMPICILLIN/SULBACTAM <=4/2 S AMIKACIN <=16 S AMPICILLIN <=8 S AMOXICILLIN/K CLAVULANATE <=8/4 S AZTREONAM <=4 S CEFTRIAXONE <=1 S CEFTAZIDIME <=1 S CEFOTAXIME <=2 S CEFOXITIN <=8 S CEFAZOLIN <=2 S CIPROFLOXACIN <=0.25 S CEFEPIME <=2 S RUN DATE: 10/05/21 [facility] *LIVE* PAGE 2 RUN TIME: 1148 Specimen Inquiry SPEC: [id number] PATIENT: REHAN JOHNS [id number] (Continued) Procedure Result CONTINUED ON NEXT PAGE --- --------- RUN DATE: 10/05/21 [facility] *LIVE* PAGE 3 RUN TIME: 1148 Specimen Inquiry SPEC: [id number] PATIENT: REHAN JOHNS [id number] (Continued) Procedure Result ANTIMICROBIAL SUSCEPTIBILITY Preliminary (continued) CEFUROXIME <=4 S CEFTAZIDIME/AVIBACTAM <=4 S ERTAPENEM <=0.5 S GENTAMICIN <=2 S LEVOFLOXACIN <=0.5 S MEROPENEM <=1 S PIPERACILLIN/TAZOBACTAM <=8 S TRIMETHOPRIM/SULFAMETHOXAZOLE <=0.5/9.5 S TETRACYCLINE <=4 S TOBRAMYCIN <=2 S Unless otherwise specified, Testing Performed by: [address] [address] For Inquires, the Physician may contact the Microbiology department at [phone] - ESCHERICHIA COLI ENTEROCOCCUS FAECALIS BACTEROIDES THETAIOTAOMICRON G PARVIMONAS [place] Objective: Assessment: 1. Ruptured appendix. Status post surgery laparoscopically assisted right colectomy September 28 cultures polymicrobial as above Intra-abdominal abscess status post IR drainage 10/02 Cultures positive for E. coli and Maylin glabrata 2. Leukocytosis, improving though slowly 3. Diabetes mellitus. 4. Hypertension. 5. Gastroesophageal reflux disease. 6. Chronic back problem. 7. Right upper lid stye 8. Thrombocytosis platelets greater than 900, likely reactive Plan: Plan of Care Offered patient discharged on p.o. antibiotics Augmentin 875 mg p.o. twice daily and fluconazole 400 mg p.o. daily Patient would like to know what her CBC is this morning before discharge is planned to see if her white count is coming down CBC with differential ordered for this morning Continue Zosyn ,micafungin Local eye care including warm compresses eye ointment instead of tobramycin drops per patient request Hematology input noted Patient may need imaging if white count is still elevated, general surgery following Monitor labs and cultures Continue supportive care ADDENDUM D/W RN CBC REVIEWED CT ABDOMEN REVIEWED;DRAINS HAVE BEEN REMOVED PER PRIMARY WBC 14K PLT > 1000, LIKELY REACTIVE DUE TO RECTUS HEMATOMA PT NEEDS TO F/U WITH PRIMARY CARE IN 7-10 DAYS F/U WITH GEN SURGERY ALLEN MOORE MD Oct 09, 2021 10:29
--- NOTE | 2021-10-09 10:42 | PDOC ---
SURGICAL PROGRESS NOTE DATE: 10/09/21 TIME: 10:41 Subjective tolerating diet pain at drain site Vital Signs Vital Signs Date Time Temp Pulse Resp B/P (MAP) Pulse Ox O2 Delivery O2 Flow Rate FiO2 10/09/21 07:40 Room Air 10/09/21 07:30 98.0 70 18 134/79 (97) 95 98.0 I&O Intake and Output 10/09/21 06:59 Intake Total 960 ml Output Total 25 ml Balance 935 ml Intake Oral 240 ml IV Total 360 ml Other 360 ml Drainage Total 25 ml # Voids 5 General: Alert, Oriented X3, Cooperative Abdomen: Soft Labs Laboratory Tests Test 10/08/21 09:45 White Blood Count 14.7 x10^3/uL (4.0-11.0) Red Blood Count 2.80 x10^6/uL (3.50-5.40) Hemoglobin 8.0 g/dL (12.0-15.5) Hematocrit 24.5 % (36.0-47.0) Mean Corpuscular Volume 88 fL (79-100) Mean Corpuscular Hemoglobin 29 pg (25-35) Mean Corpuscular Hemoglobin Concent 33 g/dL (31-37) Red Cell Distribution Width 17.1 % (11.5-14.5) Platelet Count 982 x10^3/uL (140-400) Neutrophils (%) (Auto) 77 % (31-73) Lymphocytes (%) (Auto) 14 % (24-48) Monocytes (%) (Auto) 6 % (0-9) Eosinophils (%) (Auto) 2 % (0-3) Basophils (%) (Auto) 1 % (0-3) Neutrophils # (Auto) 11.3 x10^3/uL (1.8-7.7) Lymphocytes # (Auto) 2.1 x10^3/uL (1.0-4.8) Monocytes # (Auto) 0.9 x10^3/uL (0.0-1.1) Eosinophils # (Auto) 0.3 x10^3/uL (0.0-0.7) Basophils # (Auto) 0.1 x10^3/uL (0.0-0.2) Assessment/Plan will check CT, if abscess resolved, consider drain removal--did ask nurse to notify IR of possible drain removal abx per ID possible home today Justicifation of Admission Dx: Justifications for Admission: Justification of Admission Dx: Yes VIRY BALLARD AUTOMOTIVE PROFESSIONAL Oct 09, 2021 10:42
[2021-10-09 11:00] VITALS: BP 159/82
[2021-10-09] MEDS ORDERED: IOHEXOL 300 MG/ML 100ML VIAL. IV ONE (12:15)
[2021-10-09] MEDS ORDERED: IOHEXOL 240 MG/ML 50ML VIAL. PO ONE (12:15)
[2021-10-09] MEDS ORDERED: CONTRAST GIVEN. MC PRN (12:30)
[2021-10-09 14:08] LABS: BASO # 0.1 x10^3/uL (0.0-0.2); BASO % 0 % (0-3); EOS # 0.3 x10^3/uL (0.0-0.7); EOS % 2 % (0-3); HEMATOCRIT 24.5 % (36.0-47.0); HEMOGLOBIN 8.1 g/dL (12.0-15.5); LYMPH # 2.1 x10^3/uL (1.0-4.8); LYMPH % 16 % (24-48); MEAN CORPUSCULAR HEMOGLOBIN 29 pg (25-35); MEAN CORPUSCULAR HGB CONC 33 g/dL (31-37); MEAN CORPUSCULAR VOLUME 88 fL (79-100); MONO % 7 % (0-9); NEUT # 9.9 x10^3/uL (1.8-7.7); NEUT % 75 % (31-73); RED BLOOD COUNT 2.79 x10^6/uL (3.50-5.40); RED CELL DISTRIBUTION WIDTH 17.3 % (11.5-14.5); WHITE BLOOD COUNT 13.3 x10^3/uL (4.0-11.0)
[2021-10-09 14:28] LABS: PLATELET COUNT 1018 x10^3/uL (140-400)
[2021-10-09 15:23] VITALS: BP 165/86
--- NOTE | 2021-10-09 16:32 | NUR ---
Left message on the recorder to Dr. Mcduffie about pt's platelet count 1018.
--- NOTE | 2021-10-09 17:21 | RAD ---
CT ABDOMEN+PELVIS W dated 10/09/2021 1:31 PM Indication:Reason: possible drain removal / Spl. Instructions: / History: Comparison: CT 10/02/2021 Technique: CT images were performed following oral contrast ingestion and using an infusion of 75 mL Omnipaque 300. One or more of the following individualized dose reduction techniques were utilized for this examinat ion: 1. Automated exposure control 2. Adjustment of the mA and/or kV according to patient size 3. Use of iterative reconstruction technique Findings: Pleural effusions have resolved. There is minimal basilar atelectasis. The liver and spleen are homog eneous in density and normal in configuration. There is less fluid around the liver. A small residual pocket is seen at the inferior aspect of the right lobe. This measures about 1.7 x 1.0 cm. Both kidn eys enhance with contrast. No solid mass or obstruction is seen. The adrenal glands are not enlarged. The pancreas appears normal. No retroperitoneal or mesenteric adenopathy is seen. There is no appare nt abdominal soft tissue mass. There is now a pigtail catheter looped in the right lateral abdomen wh ere a fluid collection and was shown previously. This collection has essentially resolved. There is l ess bowel distention. No new abdominal collection is seen. There is still a structure in the anterior abdominal wall suggesting surgical drain. There is less gas in the abdominal wall. No new fluid margret ection is seen. There is some thickening of the right rectus muscle suggesting hemorrhage. This thick ening extends to the pelvis. There is probably a slightly larger hematoma in the right pelvis adjacen t to the bladder. This currently measures about 6.0 x 4.5 cm, previously about 5.0 x 3.2 cm by my shital surement. Images through the pelvis show no other abnormality of the bladder or the distal ureters. N o adenopathy or soft tissue mass is seen. There is still a fluid density structure in the region of t he cul-de-sac on the right. This measures about 2 cm. It had a similar appearance previously. This ma y be loculated fluid or hematoma. An ovarian cyst would BE an additional consideration. IMPRESSION: Essentially complete evacuation of the right abdominal fluid collection. Persistent thickening of the right rectus muscle suggesting hemorrhage. There is probably a larger he matoma now adjacent to the bladder. Electronically signed by: Edwin Bustamante Jr., MD (10/09/2021 5:18 PM) [id number]
--- NOTE | 2021-10-09 17:30 | NUR ---
Spoke with Dr. Bryan and gave orders for Augmentin 875mg bid for 7 days and Diflucan 400mg daily for 5 days.
--- NOTE | 2021-10-09 18:26 | NUR ---
IV dc'd and YOANNA drain removed. Placed 4x4 and hypofix tape at yoanna site. Abd amber vargas dressing changed. Extra supplies given. Pt tolerated it well.
--- NOTE | 2021-10-09 18:45 | NUR ---
Discharge instructions given. Answered questions and concerns. Verbalized understanding. Pt discharged home accompanied by declan. Escorted out by w/c.
--- NOTE | 2021-10-09 18:45 | NUR ---
Spoke with Dr. Nguyen on phone to tell him that pt still has pen alicia drain. Pt has already been discharged. Stated "Okay".
--- NOTE | 2021-10-10 09:57 | PDOC3 ---
Discharge Summary Visit Information Date of Admission: Sep 28, 2021 Date of Discharge: Oct 09, 2021 Admitting Diagnosis: Perforated appendicitis Brief Hospital Course Allergies Allergies Coded Allergies Type Severity Reaction Last Updated Verified No Known Drug Allergies 09/28/21 No Vital Signs Vital Signs Date Time Temp Pulse Resp B/P (MAP) Pulse Ox O2 Delivery O2 Flow Rate FiO2 10/09/21 17:02 Room Air 10/09/21 15:23 98.2 74 16 165/86 (112) 96 98.2 Lab Results Laboratory Tests Test 10/09/21 12:50 White Blood Count 13.3 x10^3/uL (4.0-11.0) Red Blood Count 2.79 x10^6/uL (3.50-5.40) Hemoglobin 8.1 g/dL (12.0-15.5) Hematocrit 24.5 % (36.0-47.0) Mean Corpuscular Volume 88 fL (79-100) Mean Corpuscular Hemoglobin 29 pg (25-35) Mean Corpuscular Hemoglobin Concent 33 g/dL (31-37) Red Cell Distribution Width 17.3 % (11.5-14.5) Platelet Count 1018 x10^3/uL (140-400) Neutrophils (%) (Auto) 75 % (31-73) Lymphocytes (%) (Auto) 16 % (24-48) Monocytes (%) (Auto) 7 % (0-9) Eosinophils (%) (Auto) 2 % (0-3) Basophils (%) (Auto) 0 % (0-3) Neutrophils # (Auto) 9.9 x10^3/uL (1.8-7.7) Lymphocytes # (Auto) 2.1 x10^3/uL (1.0-4.8) Monocytes # (Auto) 1.0 x10^3/uL (0.0-1.1) Eosinophils # (Auto) 0.3 x10^3/uL (0.0-0.7) Basophils # (Auto) 0.1 x10^3/uL (0.0-0.2) Laboratory Tests Test 10/09/21 12:50 White Blood Count 13.3 x10^3/uL (4.0-11.0) Red Blood Count 2.79 x10^6/uL (3.50-5.40) Hemoglobin 8.1 g/dL (12.0-15.5) Hematocrit 24.5 % (36.0-47.0) Mean Corpuscular Volume 88 fL (79-100) Mean Corpuscular Hemoglobin 29 pg (25-35) Mean Corpuscular Hemoglobin Concent 33 g/dL (31-37) Red Cell Distribution Width 17.3 % (11.5-14.5) Platelet Count 1018 x10^3/uL (140-400) Neutrophils (%) (Auto) 75 % (31-73) Lymphocytes (%) (Auto) 16 % (24-48) Monocytes (%) (Auto) 7 % (0-9) Eosinophils (%) (Auto) 2 % (0-3) Basophils (%) (Auto) 0 % (0-3) Neutrophils # (Auto) 9.9 x10^3/uL (1.8-7.7) Lymphocytes # (Auto) 2.1 x10^3/uL (1.0-4.8) Monocytes # (Auto) 1.0 x10^3/uL (0.0-1.1) Eosinophils # (Auto) 0.3 x10^3/uL (0.0-0.7) Basophils # (Auto) 0.1 x10^3/uL (0.0-0.2) Brief Hospital Course Ms. Orellana is a 51 old F who presented with perforated appendicitis. She underwent laparoscopic assisted right colon. Post op she gradually improved. She did have rectus sheath hematoma, requiring blood transfusion and abd abscess requiring drainage. Her drain was removed prior to d/c with improved CT. Discharge Information Condition at Discharge: Improved Follow Up: Weeks (2) Disposition/Orders: D/C to Home Scheduled Amoxicillin/Potassium Clav (Augmentin 875-125 Tablet) 1 Each Tablet, 1 TAB PO BID for appendicitis for 10 Days, #20 Ref 0 Prescribed by: ELENITA NAIR on 09/18/21 0856 Last Taken: Unknown Dose on 09/27/21 Last Action: Last Taken Edited on 09/28/21 0758 by SAMARA CONLEY Calcium Citrate (Calcium Citrate) 250 Mg Tablet, 1 TAB PO DAILY for supplement for 30 Days, #30 Ref 0 (Reported) Entered as Reported by: CHANEL BECKER on 09/16/212011 Last Taken: Unknown Dose on 09/27/21 Last Action: Last Taken Edited on 09/28/21757 by SAMARA DISERON Lactobacillus Combo No.10 (Probiotic) 1 Each Capsule, 1 TAB PO DAILY for supplement for 30 Days, #30 Ref 0 (Reported) Entered as Reported by: CHANEL BECKER on 09/16/212011 Last Taken: Unknown Dose on 09/27/21 Last Action: Last Taken Edited on 09/28/21757 by SAMARA DISERON Lisinopril (Lisinopril) 10 Mg Tablet, 20 MG PO DAILY for htn, #30 Ref 5 (Reported) Entered as Reported by: CHANEL BECKER on 09/16/212011 Last Taken: Unknown Dose on 09/27/21 Last Action: Last Taken Edited on 09/28/21757 by SAMARA DISERON Multivitamin (Multiple Vitamins) 1 Each Tablet, 1 TAB PO DAILY for supplement for 30 Days, #30 Ref 0 (Reported) Entered as Reported by: CHANEL BECKER on 09/16/212011 Last Taken: Unknown Dose on 09/27/21 Last Action: Last Taken Edited on 09/28/21757 by SAMARA DISERON Omeprazole Magnesium (Prilosec Otc) 20 Mg Tablet.dr, 20 MG PO DAILY for treat reflux, (Reported) Entered as Reported by: TINO SHETTY on 09/25/211624 Last Taken: Unknown Dose on 09/28/21 050 Last Action: Converted on 10/02/21 0448 by PRADEEP BEE Scheduled PRN Alprazolam (Xanax) 0.25 Mg Tablet, 1 TAB PO HS PRN for ANXIETY, #30 (Reported) Entered as Reported by: CHANEL BECKER on 09/16/212011 Last Taken: Unknown Dose on 09/27/21 Last Action: Last Taken Edited on 09/28/21757 by SAMARA DISERON Oxycodone/Apap 5-325 (Percocet 5-325 Mg Tablet ) 1 Each Tablet, 1 TAB PO PRN Q4-6HRS PRN for PAIN, Ref 0 (Reported) Entered as Reported by: TINO SHETTY on 09/25/211624 Last Taken: Unknown Dose on 09/28/21 0500 Last Action: Last Taken Edited on 09/28/21757 by SAMARA CONLEY Justicifation of Admission Dx: Justifications for Admission: Justification of Admission Dx: Yes XAVIER HANNON MD Oct 10, 2021 09:57
== END 2021-10-09 18:45 | disposition home or self-care (01) | DRG 330 ==
LOC: SURG 07:14 → 4 NORTH 12:47
PROVIDERS: ADMIT Surgery; ATTEND Surgery
PROC: 0DTF0ZZ Resection of Right Large Intestine, Open Approach (ICD-10-PCS; principal; 2021-09-28 09:00)
PROC: 0W9H30Z Drainage of Retroperitoneum with Drainage Device, Percutaneous Approach (ICD-10-PCS; 2021-10-02)
DX: K35.33 Acute appendicitis with perforation, localized peritonitis, and gangrene, with abscess (principal); A04.8 Other specified bacterial intestinal infections; D62 Acute posthemorrhagic anemia; K63.0 Abscess of intestine; B96.20 Unspecified Escherichia coli [E. coli] as the cause of diseases classified elsewhere; D75.839 Thrombocytosis, unspecified; D86.9 Sarcoidosis, unspecified; E11.9 Type 2 diabetes mellitus without complications; H00.011 Hordeolum externum right upper eyelid; I10 Essential (primary) hypertension; K21.9 Gastro-esophageal reflux disease without esophagitis; S30.1XXA Contusion of abdominal wall, initial encounter; Z82.49 Family history of ischemic heart disease and other diseases of the circulatory system; Z83.3 Family history of diabetes mellitus; Z87.442 Personal history of urinary calculi; B95.2 Enterococcus as the cause of diseases classified elsewhere
CPT/HCPCS: 36415; 36430; 49406; 74018; 74177; 80048; 80053; 82962; 85007; 85025; 85610; 86850; 86900; 86901; 86920; 87071; 87075; 87076; 87077; 87102; 88307; 93005; 99152; A4314; A4930; A6253; A6402; C1892; J0694; J1100; J1170; J1200; J1650; J1885; J2248; J2250; J2270; J2405; J2543; J2704; J2710; J3010; J3490; J7030; J7060; J7120; P9016; Q9966; Q9967; Q9968; 97110-GP; 97116-GP; 97530-GP; G0378